=== PATIENT | female | born 1990 | race Two or more races ===

== ENCOUNTER 2024-10-05 11:01 | Emergency (ER) | payer MEDICAID, OTHER ==
[~2024-10-05] VITALS: Ht 172.7 cm; Wt 88.4 kg
[2024-10-05 11:12] VITALS: BP 125/81; PULSE 108; RESP 18; TEMP 98.1; O2SAT 98
--- NOTE | 2024-10-05 11:16 | ED.PDOC ---
GI ASSESSMENT HPI Comments 34 y.o female presents to the ED for a chief complaint of nausea, vomiting and abdominal pain that started last night. Patient is about 24 weeks gestation, states history of Hyperemesis gravidarum with preeclampsia and has . Patient reports clear fluid discharge on her underwear this morning with no bleeding or odor noted. Patient reports last emesis episode was half an hour ago and noted bright red blood. She denies any pelvic pain, fever, chills, back pain. No other complaints. She denies substance, alcohol or tobacco use. Time Seen by MD: 11:08 Reviewed Notes: Nurses Notes, Medications, Allergies Allergies: Coded Allergies: NO KNOWN ALLERGIES (Unverified , 10/05/24) Information Source: Patient Mode of Arrival: Ambulatory Timing: Hours Duration: Since onset Vomitus: Hard Stool: Normal Severity: Moderate Recent: None Recent Hx of: None Pain Location: Diffuse, Periumbilical Modifying Factors: Nothing Associated sign and symptoms: Nausea, Vomiting, Abdominal Pain Past Medical History PAST MEDICAL HISTORY: Denies Surgical History: Denies all surgeries PATIENT CARE TECHNICIAN History: Other (preeclampsia and HG ) Family History Family History: Reviewed,noncontributory to illness Social History Smoker: Non-Smoker Alcohol: Denies ETOH Use Drugs: Denies Drug Use Lives In: Home Constitutional: denies: chills, diaphoresis, fatigue, fever, malaise, sweats, weakness, others EENTM: denies: blurred vision, double vision, ear bleeding, ear discharge, ear drainage, ear pain, ear ringing, eye pain, eye redness, hearing loss, mouth pain, mouth swelling, nasal discharge, nose bleeding, nose congestion, nose pain, photophobia, tearing, throat pain, throat swelling, voice changes, others Respiratory: denies: cough, hemoptysis, orthopnea, SOB at rest, shortness of breath, SOB with excertion, stridor, wheezing, others Cardiovascular: denies: chest pain, dizzy spells, diaphoresis, Dyspnea on exertion, edema, irregular heart beat, left arm pain, lightheadedness, palpitations, PND, syncope, others Gastrointestinal: reports: nausea, vomiting; denies: abdomen distended, abdominal pain, blood streaked bowels, constipated, diarrhea, dysphagia, difficulty swallowing, hematemesis, melena, poor appetite, poor fluid intake, rectal bleeding, rectal pain, others Genitourinary: reports: , vagina discharge; denies: abnormal vagina bleeding, burning, dyspareunia, dysuria, flank pain, frequency, hematuria, incontinence, pain, urgency, others Neurological: denies: dizziness, fainting, headache, left sided numbness, left sided weakness, numbness, paresthesia, pre-existing deficit, right sided numbness, right sided weakness, seizure, speech problems, tingling, tremors, weakness, others Musculoskeletal: denies: back pain, gout, joint pain, joint swelling, muscle pain, muscle stiffness, neck pain, others Integumetry: denies: bruises, change in color, change in hair/nails, dryness, laceration, lesions, lumps, rash, wounds, others Allergic/Immunocompromised: denies: Difficulty Healing, Frequent Infections, Hives, Itching, others Endocrine: denies: excessive hunger, excessive sweating, excessive thirst, excessive urination, flushing, intolerance to cold, intolerance to heat, u nexplained weight gain, unexplained weight loss, others Psychiatric: denies: anxiety, bipolar disorder, depression, hopeless, panic disorder, schizophrenia, sleepless, suicidal, others All Other Systems: Reviewed and Negative Physical Exam General Appearance: No Apparent Distress HEENT: Normal ENT Inspection, Pharynx Normal, TMs Normal Neck: Full Range of Motion, Non-Tender, Normal, Normal Inspection Respiratory: Chest Non-Tender, Lungs Clear, No Accessory Muscle Use, No Respiratory Distress, Normal Breath Sounds Cardiovascular: No Edema, No JVD, No Murmur, No Gallop, Normal Peripheral Pulses, Regular Rate/Rhythm Breast Exam: Deferred Gastrointestinal: Non Tender, No Pulsatile Mass, Normal Bowel Sounds, Other (Gravid uterus) Genitalia: Deferred Pelvic: Deferred Rectal: Deferred Extremities: No calf tenderness, Normal capillary refill, Normal inspection, Normal range of motion, Non-tender, No pedal edema Musculoskeletal : Apperance: Normal Neurologic: Alert, credit and collections analyst II-XII nml as Tested, No Motor Deficits, Normal Affect, Normal Mood, No Sensory Deficits Cerebellar Function: Normal Reflexes: Normal Skin: Dry, Normal Color, Warm Lymphatic: No Adenopathy Was a procedure done? Was a procedure done?: No GI differential Dx Differential Diagnosis: Esophagitis, Gastroenteritis, Dehydration, Electrolyte Imbalance, Food Poisoning, , Viral X-Ray, Labs, Meds, VS Vital Signs Date Time Temp Pulse Resp B/P (MAP) Pulse Ox O2 Delivery O2 Flow Rate FiO2 10/05/24 11:12 98.1 108 18 125/81 (96) 98 98.1 The patient was cleared to go down to labor and delivery The patient was cleared from the emergency department's Time of 1ST Reevaluation: 11:11 Reevaluation 1ST: Unchanged Patient Education/Counseling: Diagnosis, Treatment, Prognosis, Need For Follow Up Family Education/Counseling: No Family Present Departure 1 Departure Time of Disposition: 11:57 Impression: Primary Impression: Abdominal pain in Qualified Codes: O26.899 - Other specified related conditions, unspecified trimester; R10.9 - Unspecified abdominal pain Disposition: 01 HOME / SELF CARE / HOMELESS Condition: Fair Discharged With: Self Critical Care Note Critical Care Time?: No Stability Stability form required: No I personally scribed for AURORA LARSON MD ([email or web address]) on 10/05/24 at 11:16. Electronically submitted by Erika Fontanez ([facility]). AURORA LARSON MD Oct 05, 2024 11:16
[2024-10-05] MEDS: ONDANSETRON ODT 4 MG TAB PO ONE (12:45)
[2024-10-05] MEDS: FAMOTIDINE 20 MG TAB PO ONE (12:50)
[2024-10-05] MEDS ORDERED: TERBUTALINE SULFATE 1 MG/ML 1ML VIAL SC ONE (13:30)
--- NOTE | 2024-10-05 13:49 | DVH ---
LIMITED OB ULTRASOUND > 14 WKS: HISTORY: possible SROM TECHNIQUE: Multiple real-time grayscale images of the gravid uterus with duplex Doppler color flow an d M-mode spectral analysis. TRANSDUCER: Transabdominal COMPARISON: None FINDINGS /IMPRESSION: IUP single live fetus identified. heart rate 138 beats per minute Maximum vertical pocket 6.4 cm Cervix closed, 3.4 cm in length Cephalic Presentation Anterior placenta without previa or abruption.
[2024-10-05 13:55] LABS: Fern Testing Negative; Vaginal Trichomonas Not Present
[2024-10-05 13:56] LABS: Vaginal Bacteria Moderate; Vaginal Clue Cells Few; Vaginal Epithelial Cells Few
--- NOTE | 2024-10-05 14:41 | DVHDS2 ---
Physician Discharge Progress N Final Diagnosis: IUP 24 wk, abd pain, gastritis N/V with mild dehydration, resolved Threatened PTL Secondary Diagnosis: Bacterial vaginosis Operations or Procedures: Operations or Procedures Ultrasound Pelvic exam w/ wet mount + for bacterial vaginosis Exam for PPROM negative for ruptured membranes SVE Cervix closed on exam and closed, 3.4cm long by US, MVP >6cm fluid Condition on Discharge: Stable Disposition: Home Discharge Instructions: Diet: Regular Activity: Light activity Follow Up/Referral: 1-2 wk primary OB Medications: Rx Flagyl 500mg PO BID x 7d Rx Pepcid 20mg Follow Up Care: Discharge Statement: "Patient was advised to return to the ER or call 911 if any headaches, dizziness, shortness of breath, chest pain, abdominal pain, bleeding, fevers, or worsening of medical condition. Patient was counseled about treatment plan, medications, possible side effects, patientverbalized understanding. All questions were answered to the best of my ability. This discharge took greater then 30 minutes in planning, reviewing documentation, counseling the patient, and discussing with other team members." Visit Coding OBGYN Date of Service: Oct 05, 2024 Billing Provider: JANI ARTHUR DO CAR WRECKER Common Visit Codes: [id number] INP/OBS CARE(HIGH) JANI ARTHUR DO Oct 05, 2024 14:41
[2024-10-05] MEDS ORDERED: MET500T PO (14:43)
[2024-10-05] MEDS ORDERED: PREN-96 PO (14:44)
[2024-10-05] MEDS ORDERED: FAMO20TA10 PO (14:44)
== END 2024-10-05 14:52 | disposition home or self-care (01) ==
LOC: ER 11:01 → LDRP 11:20
PROVIDERS: ADMIT Obstetrics & Gynecology; ATTEND Obstetrics & Gynecology
DX: O99.612 Diseases of the digestive system complicating pregnancy, second trimester (principal); K29.70 Gastritis, unspecified, without bleeding; O23.592 Infection of other part of genital tract in pregnancy, second trimester; B96.89 Other specified bacterial agents as the cause of diseases classified elsewhere; O99.112 Other diseases of the blood and blood-forming organs and certain disorders involving the immune mechanism complicating pregnancy, second trimester; D84.9 Immunodeficiency, unspecified; O99.282 Endocrine, nutritional and metabolic diseases complicating pregnancy, second trimester; E86.0 Dehydration; Z3A.24 24 weeks gestation of pregnancy; Z98.890 Other specified postprocedural states; Z79.899 Other long term (current) drug therapy
CPT/HCPCS: 76815; 81002; 84112; 87210; 94760; 99284; G0378; Q0114; Q0162

== ENCOUNTER 2024-10-29 18:17 | Observation (INO) | payer MEDICAID ==
[~2024-10-29] VITALS: Ht 172.7 cm; Wt 91.6 kg
[~2024-10-29 18:17] MED LIST: FAMO20TA10 PO; MET500T PO; PREN-96 PO
--- NOTE | 2024-10-29 23:16 | DVHDS2 ---
Physician Discharge Progress N Final Diagnosis: throat pain fatigue dehydration Operations or Procedures: Operations or Procedures S: 34yo IUP@28+wks presents to OB triage with c/o throat pain and feeling tired. Denies any other URI symptoms. Denies UCs/LOF/VB/COSTA/vision changes/RUQ pain. Endorses +FM. PNC with Dr. Youngblood, uncomplicated. O: VSS, afebrile NST reactive TOCO: no UCs PO hydration A: 34yo IUP@28+wks throat pain fatigue dehydration P: D/C home Advised to gargle with warm water and salt mixture. RN to give pt list of safe OTC medications for sore throats. Rx sent for z-иван FKC/PTL/PreE precautions reviewed Dr. Youngblood consulted, agrees with POC. Condition on Discharge: Stable Disposition: Home Discharge Instructions: Diet: Regular Activity: No Restrictions, As Tolerated Medications: see med list Follow Up Care: Specialist: f/u with Dr. Youngblood in office as scheduled Discharge Statement: "Patient was advised to return to the ER or call 911 if any headaches, dizziness, shortness of breath, chest pain, abdominal pain, bleeding, fevers, or worsening of medical condition. Patient was counseled about treatment plan, medications, possible side effects, patientverbalized understanding. All questions were answered to the best of my ability. This discharge took greater then 30 minutes in planning, reviewing documentation, counseling the patient, and discussing with other team members." Visit Coding OBGYN Date of Service: October 29, 2024 Billing Provider: KARON HERNANDES CNM AIRCRAFT TOOL MAKER Common Visit Codes: [id number] OBS CARE (HIGH) AIRCRAFT TOOL MAKER Procedure Codes: 02601-96- NON-STRESS TEST KARON HERNANDES CNM October 29, 2024 23:16
[2024-10-29] MEDS ORDERED: AZITTAB PO (23:18)
== END 2024-10-29 19:42 | disposition home or self-care (01) ==
LOC: LDRP 18:17
PROVIDERS: ADMIT Obstetrics & Gynecology; ATTEND Obstetrics & Gynecology
DX: O99.283 Endocrine, nutritional and metabolic diseases complicating pregnancy, third trimester (principal); E86.0 Dehydration; O26.893 Other specified pregnancy related conditions, third trimester; R07.0 Pain in throat; Z3A.28 28 weeks gestation of pregnancy; Z79.899 Other long term (current) drug therapy
CPT/HCPCS: 59025; 81002; 94760; G0378

== ENCOUNTER 2024-11-11 13:38 | Observation (INO) | payer MEDICAID ==
[~2024-11-11 13:38] MED LIST changes: +AZITTAB PO; -FAMO20TA10 PO; -MET500T PO
[2024-11-11 14:48] LABS: Basophils # (auto) 0 10 ^3/uL (0-0.2); Basophils % (auto) 0.2 % (0.0-2.0); Eosinophils # (auto) 0.1 10 ^3/uL (0-0.8); Eosinophils % (auto) 0.9 % (0.0-7.0); Hematocrit 32.9 % (36.0-46.0); Hemoglobin 10.8 g/dL (12.2-16.2); Lymphocytes # (auto) 2.5 10 ^3/uL (0.4-5.4); Lymphocytes % (auto) 17.4 % (10.0-50.0); Mean Corpuscular Hemoglobin 26.9 pg (28.0-32.0); Mean Corpuscular Hgb Conc. 32.9 g/dL (32.0-36.0); Mean Corpuscular Volume 81.9 fL (80.0-100.0); Monocytes # (auto) 1.3 10 ^3/uL (0-1.3); Monocytes % (auto) 8.8 % (0.0-12.0); Neutrophils # (auto) 10.5 10 ^3/uL (1.6-8.6); Neutrophils % (auto) 72.7 % (37.0-80.0); Nucleated Red Blood Cells % 0.1 %; Platelet Count (auto) 281 10^3/uL (140-450); Red Blood Cells 4.02 10^6/uL (4.0-5.20); Red Cell Distribution Width 14.2 % (11.8-14.3); White Blood Cell 14.4 10^3/uL (4.4-10.8)
[2024-11-11 14:54] LABS: Urine Bacteria FEW /hpf (None Seen); Urine Blood Negative /uL (Negative); Urine Clarity Turbid (Clear); Urine Color Yellow (Yellow); Urine Mucus FEW (None Seen); Urine Protein, UAD TRACE (Negative); Urine Specific Gravity 1.034 (1.001-1.035); Urine Squamous Epithelial Cell MANY /hpf (<5); Urine Urobilinogen Normal (Negative); Urine WBC 9 /HPF (0-5); Urine pH 5.5 (5.0-9.0)
[2024-11-11 15:04] LABS: INR 0.96 (0.9-1.15); Partial Thromboplastin Time 29.2 SEC (24.5-34.5); Prothrombin Time 10.2 sec (9.3-11.8)
[2024-11-11 15:05] LABS: Protein, Urine 16.5 mg/dL (1-14)
[2024-11-11 15:08] LABS: Creatinine, Urine 213.48 mg/dL (30.0-125.0); Urine Protein/Creatinine Ratio 0.08
[2024-11-11 15:10] LABS: Alanine Aminotransferase 23 U/L (7-40); Albumin 3.9 g/dL (3.2-4.8); Alkaline Phosphatase 108 U/L (46-116); Anion Gap 8 (5-15); Aspartate Aminotransferase 18 U/L (13-40); BUN/Creatinine Ratio 12.1 (10.0-20.0); Bilirubin, Total 0.3 mg/dL (0.2-1.0); Blood Urea Nitrogen 7 mg/dL (9-23); Carbon Dioxide 22 mmol/L (20-31); Chloride 107 mmol/L (98-107); Glucose 85 mg/dL (74-106); Potassium 3.9 mmol/L (3.5-5.1); Sodium 137 mmol/L (136-145); Total Protein 6.6 g/dL (5.7-8.2); Uric Acid 5.2 mg/dL (3.1-7.8)
--- NOTE | 2024-11-11 18:38 | DVHDS2 ---
Physician Discharge Progress N Final Diagnosis: testing for BP monitoring Operations or Procedures: Operations or Procedures 34yo IUP@29.6wks was sent down from [facility] [place] [facility] office for BP of 140/88. +fm, Denies UCs/LOF/VB/COSTA/vision changes/RUQ pain. PNC uncomplicated thus far. VSS, normotensive NST reactive FKC/PTL/preE precautions reviewed. Dr. Youngblood consulted, agrees with POC. Laboratory Tests Test 11/11/24 14:29 11/11/24 14:45 Range/Units White Blood Count 14.4 H 4.4-10.8 10^3/uL Red Blood Count 4.02 4.0-5.20 10^6/uL Hemoglobin 10.8 L 12.2-16.2 g/dL Hematocrit 32.9 L 36.0-46.0 % Mean Corpuscular Volume 81.9 80.0-100.0 fL Mean Corpuscular Hemoglobin 26.9 L 28.0-32.0 pg Mean Corpuscular Hemoglobin Concent 32.9 32.0-36.0 g/dL Red Cell Distribution Width 14.2 11.8-14.3 % Platelet Count 281 140-450 10^3/uL Mean Platelet Volume 8.4 6.9-10.8 fL Neutrophils (%) (Auto) 72.7 37.0-80.0 % Lymphocytes (%) (Auto) 17.4 10.0-50.0 % Monocytes (%) (Auto) 8.8 0.0-12.0 % Eosinophils (%) (Auto) 0.9 0.0-7.0 % Basophils (%) (Auto) 0.2 0.0-2.0 % Neutrophils # (Auto) 10.5 H 1.6-8.6 10 ^3/uL Lymphocytes # (Auto) 2.5 0.4-5.4 10 ^3/uL Monocytes # (Auto) 1.3 0-1.3 10 ^3/uL Eosinophils # (Auto) 0.1 0-0.8 10 ^3/uL Basophils # (Auto) 0 0-0.2 10 ^3/uL Nucleated Red Blood Cells 0.1 % Prothrombin Time 10.2 9.3-11.8 sec Prothrombin Time INR 0.96 0.9-1.15 Activated Partial Thromboplast Time 29.2 24.5-34.5 SEC Sodium Level 137 136-145 mmol/L Potassium Level 3.9 3.5-5.1 mmol/L Chloride Level 107 98-107 mmol/L Carbon Dioxide Level 22 20-31 mmol/L Anion Gap 8 5-15 Blood Urea Nitrogen 7 L 9-23 mg/dL Creatinine 0.58 0.550-1.02 mg/dL Glomerular Filtration Rate Calc 123 >90 mL/min BUN/Creatinine Ratio 12.1 10.0-20.0 Serum Glucose 85 74-106 mg/dL Uric Acid 5.2 3.1-7.8 mg/dL Calcium Level 9.0 8.7-10.4 mg/dL Total Bilirubin 0.3 0.2-1.0 mg/dL Aspartate Amino Transferase (AST) 18 13-40 U/L Alanine Aminotransferase (ALT) 23 7-40 U/L Alkaline Phosphatase 108 46-116 U/L Total Protein 6.6 5.7-8.2 g/dL Albumin 3.9 3.2-4.8 g/dL Urine Color Yellow Yellow Urine Clarity Turbid H Clear Urine pH 5.5 5.0-9.0 Urine Specific [place] 1.034 1.001-1.035 Urine Protein Trace H Negative Urine Ketones Trace Negative Urine Blood Negative Negative /uL Urine Nitrite Negative Negative Urine Bilirubin Negative Negative Urine Urobilinogen Normal Negative mg/dL Urine Leukocyte Esterase 2+ Negative /uL Urine RBC 5 0 - 4 /hpf Urine Microscopic WBC 9 H 0-5 /HPF Urine Squamous Epithelial Cells Many <5 /hpf Urine Bacteria Few H None Seen /hpf Urine Mucus Few None Seen Urine Creatinine 213.48 H 30.0-125.0 mg/dL Urine Protein/Creatinine Ratio 0.08 Urine Glucose Trace Normal mg/dL Urine Total Protein 16.5 H 1-14 mg/dL Condition on Discharge: Stable Disposition: Home Discharge Instructions: Diet: Regular Activity: No Restrictions, As Tolerated Medications: see med list Follow Up Care: Specialist: f/u on 11/13/24 with 24 hour urine collection Discharge Statement: "Patient was advised to return to the ER or call 911 if any headaches, dizziness, shortness of breath, chest pain, abdominal pain, bleeding, fevers, or worsening of medical condition. Patient was counseled about treatment plan, medications, possible side effects, patientverbalized understanding. All questions were answered to the best of my ability. This discharge took greater then 30 minutes in planning, reviewing documentation, counseling the patient, and discussing with other team members." Visit Coding OBGYN Date of Service: Nov 11, 2024 Billing Provider: KARON HERNANDES CNM DUPLEX TRIMMER Common Visit Codes: 06036-[id number] OBS CARE (HIGH) DUPLEX TRIMMER Procedure Codes: 97210-26- NON-STRESS TEST KARON HERNANDES CNM Nov 11, 2024 18:38
== END 2024-11-11 15:36 | disposition home or self-care (01) ==
LOC: LDRP 13:38
PROVIDERS: ADMIT Obstetrics & Gynecology; ATTEND Obstetrics & Gynecology
DX: O26.893 Other specified pregnancy related conditions, third trimester (principal); R03.0 Elevated blood-pressure reading, without diagnosis of hypertension; Z3A.29 29 weeks gestation of pregnancy; Z79.899 Other long term (current) drug therapy; Z98.890 Other specified postprocedural states; Z86.2 Personal history of diseases of the blood and blood-forming organs and certain disorders involving the immune mechanism
CPT/HCPCS: 36415; 59025; 80053; 81001; 81002; 82570; 82948; 84156; 84550; 85025; 85610; 85730; 94760; G0378

== ENCOUNTER 2024-11-13 07:17 | Observation (INO) | payer MEDICAID ==
[~2024-11-13] VITALS: Ht 172.7 cm; Wt 91.6 kg
[2024-11-13 08:46] LABS: Urine Bacteria FEW /hpf (None Seen); Urine Blood Negative /uL (Negative); Urine Clarity Turbid (Clear); Urine Color Light-Orange (Yellow); Urine Mucus FEW (None Seen); Urine Protein, UAD TRACE (Negative); Urine Specific Gravity 1.028 (1.001-1.035); Urine Squamous Epithelial Cell MANY /hpf (<5); Urine Urobilinogen Normal (Negative); Urine WBC 50 /HPF (0-5); Urine pH 5.5 (5.0-9.0)
[2024-11-13 08:56] LABS: Creatinine, Urine 181.1 mg/dL (30.0-125.0); Urine Protein/Creatinine Ratio 0.16
[2024-11-13 09:09] LABS: Protein, Urine 19.8 mg/dL (1-14)
--- NOTE | 2024-11-13 09:14 | DVH ---
BIOPHYSICAL PROFILE HISTORY: pih/gdma TECHNIQUE: Multiple transabdominal real-time grayscale sonographic images through the gravid uterus of the fetus with duplex Doppler color flow and M-mode spectral analysis FINDINGS: BIOPHYSICAL PROFILE: breathing score: 2 movement score: 2 tone score: 2 Quantitative SANDY score: 2 (SANDY: 11.9 Cm.) Total score: 8 The cervix measures 2.9 cm and closed. Single live fetus in cephalic presentation. heart rate 144 beats per minute. Grade 1 anterior placenta without previa or abruption IMPRESSION: Biophysical profile score: 8
[2024-11-13 09:25] LABS: 24 Hr. Total Protein, Urine 158.4 mg/24 Hr (<149.1)
[2024-11-13] MEDS: BETAMETHASONE ACET (30mg/5ml) 5ml Vial 6mg/ml IM ONE (11:26)
--- NOTE | 2024-11-15 08:43 | DVHDS2 ---
Physician Discharge Progress N Final Diagnosis: ptl,mhp10ern Operations or Procedures: Operations or Procedures nst reactive reviwed,monserrato Condition on Discharge: Good Disposition: Home Discharge Instructions: Diet: Consistent carbohydrate Activity: No Restrictions, As Tolerated Medications: na Follow Up Care: Specialist: 1d Discharge Statement: "Patient was advised to return to the ER or call 911 if any headaches, dizziness, shortness of breath, chest pain, abdominal pain, bleeding, fevers, or worsening of medical condition. Patient was counseled about treatment plan, medications, possible side effects, patientverbalized understanding. All questions were answered to the best of my ability. This discharge took greater then 30 minutes in planning, reviewing documentation, counseling the patient, and discussing with other team members." Visit Coding OBGYN Date of Service: Nov 13, 2024 Billing Provider: SANDRO AGUILAR DO STOCK CAR DRIVER Common Visit Codes: 69554-[id number] OBS CARE (HIGH) STOCK CAR DRIVER Procedure Codes: 48301-22- NON-STRESS TEST SANDRO AGUILAR DO Nov 15, 2024 08:43
== END 2024-11-13 11:55 | disposition home or self-care (01) ==
LOC: LDRP 07:17 → UNDOADMOB 07:17 → LDRP 07:45
PROVIDERS: ADMIT Obstetrics & Gynecology; ATTEND Obstetrics & Gynecology
DX: O60.03 Preterm labor without delivery, third trimester (principal); O13.3 Gestational [pregnancy-induced] hypertension without significant proteinuria, third trimester; Z3A.30 30 weeks gestation of pregnancy; Z79.899 Other long term (current) drug therapy; Z98.890 Other specified postprocedural states
CPT/HCPCS: 59025; 76819; 81001; 81002; 82570; 82948; 82962; 84156; 94760; 96360; 96361; 96372; G0378; J0702

== ENCOUNTER 2024-11-14 07:23 | Observation (INO) | payer MEDICAID ==
[~2024-11-14] VITALS: Ht 172.7 cm; Wt 91.6 kg
[2024-11-14] MEDS: BETAMETHASONE ACET (30mg/5ml) 5ml Vial 6mg/ml IM ONE (12:04)
--- NOTE | 2024-11-14 18:51 | DVHDS2 ---
Physician Discharge Progress N Final Diagnosis: 32wks pih,ptl Operations or Procedures: Operations or Procedures nstreactive reviwed Condition on Discharge: Good Disposition: Home Discharge Instructions: Diet: Consistent carbohydrate Activity: Light activity Medications: na Follow Up Care: Specialist: 4d Discharge Statement: "Patient was advised to return to the ER or call 911 if any headaches, dizziness, shortness of breath, chest pain, abdominal pain, bleeding, fevers, or worsening of medical condition. Patient was counseled about treatment plan, medications, possible side effects, patientverbalized understanding. All questions were answered to the best of my ability. This discharge took greater then 30 minutes in planning, reviewing documentati on, counseling the patient, and discussing with other team members." Discharge Care Plan Instructions S/S of dehydration Visit Coding OBGYN Date of Service: Nov 14, 2024 Billing Provider: SANDRO AGUILAR DO CARDIOLOGY TECH Common Visit Codes: [id number] INP/OBS CARE (HIGH) CARDIOLOGY TECH Procedure Codes: 66075-32- NON-STRESS TEST SANDRO AGUILAR DO Nov 14, 2024 18:51
== END 2024-11-14 12:19 | disposition home or self-care (01) ==
LOC: UNDOADMOB 10:14 → LDRP 10:14
PROVIDERS: ADMIT Obstetrics & Gynecology; ATTEND Obstetrics & Gynecology
DX: O60.03 Preterm labor without delivery, third trimester (principal); O13.3 Gestational [pregnancy-induced] hypertension without significant proteinuria, third trimester; Z3A.32 32 weeks gestation of pregnancy; Z79.899 Other long term (current) drug therapy; Z98.890 Other specified postprocedural states
CPT/HCPCS: 59025; 81002; 82962; 94760; 96372; G0378

== ENCOUNTER 2024-11-17 03:46 | Observation (INO) | payer MEDICAID ==
[2024-11-17] MEDS ORDERED: LABE100T7 PO (12:59)
[2024-11-17] MEDS ORDERED: NIFE10CA52 PO (12:59)
--- NOTE | 2024-11-17 23:25 | DVHDS2 ---
Discharge Summary Date of Admission Nov 17, 2024 at 12:35 Date of Discharge: Nov 17, 2024 Admitting Diagnosis Thirty weeks 5 days GDM A1 labor PI H Labs/Diagnostic Data: Laboratory Results Test 11/17/24 13:05 POC Glucose 104 mg/dl (70-106) Brief Hx & Hospital Course: NST ultrasound showing Condition at Discharge: Good Final Diagnosis/Problems List Same Discharge Disposition: Home Discharge Instruct/Medications Diet: Consistent carbohydrate Activity: No Restrictions, As Tolerated Activity comment: Kick counseling precautions Discharge Statement: "Patient was advised to return to the ER or call 911 if any headaches, dizziness, shortness of breath, chest pain, abdominal pain, bleeding, fevers, or worsening of medical condition. Patient was counseled about treatment plan, medications, possible side effects, patientverbalized understanding. All questions were answered to the best of my ability. This discharge took greater then 30 minutes in planning, reviewing documentation, counseling the patient, and discussing with other team members." ASSESSMENT ASSESSMENT Assessment Visit Coding OBGYN Date of Service: Nov 17, 2024 Billing Provider: NADEEM WANG DO LIME BOILER Common Visit Codes: 14272-VPK/OBS SAME DATE (LOW), 20949-VPD/OBS SAME DATE (MOD), 35849-FQN/OBS SAME DATE (HIGH) LIME BOILER Procedure Codes: 60286-84- NON-STRESS TEST NADEEM WANG DO Nov 17, 2024 23:25
== END 2024-11-17 13:51 | disposition home or self-care (01) ==
LOC: LDRP 12:18 → UNDOADMOB 12:18 → LDRP 12:35
PROVIDERS: ADMIT Obstetrics & Gynecology; ATTEND Obstetrics & Gynecology
DX: O60.03 Preterm labor without delivery, third trimester (principal); O13.3 Gestational [pregnancy-induced] hypertension without significant proteinuria, third trimester; O24.419 Gestational diabetes mellitus in pregnancy, unspecified control; Z3A.30 30 weeks gestation of pregnancy; Z79.899 Other long term (current) drug therapy
CPT/HCPCS: 59025; 81002; 82948; 82962; 94760; G0378

== ENCOUNTER 2024-11-20 06:54 | Observation (INO) | payer MEDICAID ==
[~2024-11-20 06:54] MED LIST changes: +LABE100T7 PO; +NIFE10CA52 PO
--- NOTE | 2024-11-21 09:55 | DVHDS2 ---
Physician Discharge Progress N Final Diagnosis: 31wks,gdm,ptl,pih Operations or Procedures: Operations or Procedures nst reactive reviwed,sono Condition on Discharge: Good Disposition: Home Discharge Instructions: Diet: Consistent carbohydrate Activity: No Restrictions, As Tolerated Follow Up/Referral: as scheduled. Medications: na Follow Up Care: Specialist: 3d Discharge Statement: "Patient was advised to return to the ER or call 911 if any headaches, dizziness, shortness of breath, chest pain, abdominal pain, bleeding, fevers, or worsening of medical condition. Patient was counseled about treatment plan, medications, possible side effects, patientverbalized understanding. All questions were answered to the best of my ability. This discharge took greater then 30 minutes in planning, reviewing documentation, counseling the patient, and discussing with other team members." Visit Coding OBGYN Date of Service: Nov 20, 2024 Billing Provider: SANDRO AGUILAR DO STEAMBOAT INSPECTOR Common Visit Codes: [id number]-[id number] OBS CARE (HIGH) STEAMBOAT INSPECTOR Procedure Codes: 93567-69- NON-STRESS TEST SANDRO AGUILAR DO Nov 21, 2024 09:55
== END 2024-11-20 14:18 | disposition home or self-care (01) ==
LOC: LDRP 12:50 → UNDOADMOB 12:50 → LDRP 13:14
PROVIDERS: ADMIT Obstetrics & Gynecology; ATTEND Obstetrics & Gynecology
DX: O24.419 Gestational diabetes mellitus in pregnancy, unspecified control (principal); O60.03 Preterm labor without delivery, third trimester; O13.3 Gestational [pregnancy-induced] hypertension without significant proteinuria, third trimester; Z3A.31 31 weeks gestation of pregnancy; Z79.899 Other long term (current) drug therapy; Z98.890 Other specified postprocedural states
CPT/HCPCS: 59025; 81002; 82948; 82962; 94760; G0378

== ENCOUNTER 2024-11-24 07:17 | Observation (INO) | payer MEDICAID ==
[~2024-11-24] VITALS: Ht 172.7 cm; Wt 91.2 kg
[2024-11-24 10:39] LABS: Eosinophils # (auto) 0.1 10 ^3/uL (0-0.8); Eosinophils % (auto) 0.9 % (0.0-7.0); Hemoglobin 10.3 g/dL (12.2-16.2)
[2024-11-24 10:41] LABS: Basophils # (auto) 0 10 ^3/uL (0-0.2); Basophils % (auto) 0.2 % (0.0-2.0); Hematocrit 31.4 % (36.0-46.0); Lymphocytes # (auto) 2.3 10 ^3/uL (0.4-5.4); Lymphocytes % (auto) 16.7 % (10.0-50.0); Mean Corpuscular Hemoglobin 26.3 pg (28.0-32.0); Mean Corpuscular Hgb Conc. 32.7 g/dL (32.0-36.0); Mean Corpuscular Volume 80.3 fL (80.0-100.0); Monocytes # (auto) 0.9 10 ^3/uL (0-1.3); Monocytes % (auto) 6.8 % (0.0-12.0); Neutrophils # (auto) 10.3 10 ^3/uL (1.6-8.6); Neutrophils % (auto) 75.4 % (37.0-80.0); Platelet Count (auto) 267 10^3/uL (140-450); Red Blood Cells 3.91 10^6/uL (4.0-5.20); Red Cell Distribution Width 14.6 % (11.8-14.3); White Blood Cell 13.6 10^3/uL (4.4-10.8)
[2024-11-24 10:50] LABS: Urine Bacteria FEW /hpf (None Seen); Urine Blood Negative /uL (Negative); Urine Budding Yeast OCCASIONAL /hpf (None Seen); Urine Clarity Turbid (Clear); Urine Color Light-Yellow (Yellow); Urine Mucus FEW (None Seen); Urine Protein, UAD Negative (Negative); Urine Specific Gravity 1.017 (1.001-1.035); Urine Squamous Epithelial Cell FEW /hpf (<5); Urine Urobilinogen Normal (Negative); Urine WBC 1 /HPF (0-5); Urine pH 5.5 (5.0-9.0)
[2024-11-24 10:52] LABS: Protein, Urine 9.1 mg/dL (1-14)
[2024-11-24 10:53] LABS: INR 0.94 (0.9-1.15); Partial Thromboplastin Time 30.5 SEC (24.5-34.5)
[2024-11-24 10:54] LABS: Alanine Aminotransferase 16 U/L (7-40); Albumin 3.8 g/dL (3.2-4.8); Anion Gap 10 (5-15); Aspartate Aminotransferase 13 U/L (<34); BUN/Creatinine Ratio 9.7 (10.0-20.0); Calcium 9.8 mg/dL (8.7-10.4); Carbon Dioxide 23 mmol/L (20-31); Chloride 105 mmol/L (98-107); Potassium 4.1 mmol/L (3.5-5.1); Sodium 138 mmol/L (136-145); Total Protein 6.4 g/dL (5.7-8.2)
[2024-11-24 10:54] LABS: Creatinine, Urine 101.37 mg/dL (30.0-125.0); Urine Protein/Creatinine Ratio 0.09
[2024-11-24 10:56] LABS: Amphetamine Screen, Urine Neg (NEGATIVE)
[2024-11-24 10:56] LABS: Alkaline Phosphatase 116 U/L (46-116); Bilirubin, Total 0.3 mg/dL (0.2-1.0); Blood Urea Nitrogen 6 mg/dL (9-23); Glucose 114 mg/dL (74-106)
[2024-11-24 10:57] LABS: Barbiturate Scree,Urine Neg (NEGATIVE); Benzodiazephine Screen, Urine Neg (NEGATIVE); Cannabinoid Screen, Urine Neg (NEGATIVE); Cocaine Screen, Urine Neg (NEGATIVE); Opiate Scree,Urine Neg (NEGATIVE); Phencyclidine Screen, Urine Neg (NEGATIVE)
--- NOTE | 2024-11-24 11:15 | DVH ---
BIOPHYSICAL PROFILE HISTORY: GDMA1, PIH, PTL TECHNIQUE: Multiple transabdominal real-time grayscale sonographic images through the gravid uterus of the fetus with duplex Doppler color flow and M-mode spectral analysis FINDINGS: BIOPHYSICAL PROFILE: breathing score: 2 movement score: 2 tone score: 2 Quantitative SANDY score: 2 (SANDY: 16 Cm.) Total score: 8 Cervix measures 2.6 cm with funneling measuring 8 mm. Single live fetus in cephalic presentation. heart rate 153 beats per minute. Grade II anterior placenta without previa or abruption IMPRESSION: Biophysical profile score: 8 Cervix measures 2.6 cm with funneling measuring 8 mm.
[2024-11-24 11:20] LABS: Uric Acid 5.3 mg/dL (3.1-7.8)
[2024-11-24] MEDS ORDERED: LACTATED RINGER'S 1,000 ML IV ONE ×2 (11:30)
[2024-11-24] MEDS ORDERED: FAMO-12 PO (11:49)
[2024-11-24] MEDS ORDERED: ASPI-543 PO (11:49)
--- NOTE | 2024-11-24 23:03 | DVHDS2 ---
Discharge Summary Date of Admission Nov 24, 2024 at 09:42 Date of Discharge: Nov 24, 2024 Admitting Diagnosis Thirty-one week five seven labor PIH GDM A1 Labs/Diagnostic Data: Laboratory Results Test 11/24/24 10:16 11/24/24 09:40 White Blood Count 13.6 10^3/uL (4.4-10.8) Red Blood Count 3.91 10^6/uL (4.0-5.20) Hemoglobin 10.3 g/dL (12.2-16.2) Hematocrit 31.4 % (36.0-46.0) Mean Corpuscular Volume 80.3 fL (80.0-100.0) Mean Corpuscular Hemoglobin 26.3 pg (28.0-32.0) Mean Corpuscular Hemoglobin Concent 32.7 g/dL (32.0-36.0) Red Cell Distribution Width 14.6 % (11.8-14.3) Platelet Count 267 10^3/uL (140-450) Mean Platelet Volume 8.3 fL (6.9-10.8) Neutrophils (%) (Auto) 75.4 % (37.0-80.0) Lymphocytes (%) (Auto) 16.7 % (10.0-50.0) Monocytes (%) (Auto) 6.8 % (0.0-12.0) Eosinophils (%) (Auto) 0.9 % (0.0-7.0) Basophils (%) (Auto) 0.2 % (0.0-2.0) Neutrophils # (Auto) 10.3 10 ^3/uL (1.6-8.6) Lymphocytes # (Auto) 2.3 10 ^3/uL (0.4-5.4) Monocytes # (Auto) 0.9 10 ^3/uL (0-1.3) Eosinophils # (Auto) 0.1 10 ^3/uL (0-0.8) Basophils # (Auto) 0 10 ^3/uL (0-0.2) Nucleated Red Blood Cells 0.0 % Prothrombin Time 10.0 sec (9.3-11.8) Prothrombin Time INR 0.94 (0.9-1.15) Activated Partial Thromboplast Time 30.5 SEC (24.5-34.5) Sodium Level 138 mmol/L (136-145) Potassium Level 4.1 mmol/L (3.5-5.1) Chloride Level 105 mmol/L (98-107) Carbon Dioxide Level 23 mmol/L (20-31) Anion Gap 10 (5-15) Blood Urea Nitrogen 6 mg/dL (9-23) Creatinine 0.62 mg/dL (0.550-1.02) Glomerular Filtration Rate Calc 121 mL/min (>90) BUN/Creatinine Ratio 9.7 (10.0-20.0) Serum Glucose 114 mg/dL (74-106) Uric Acid 5.3 mg/dL (3.1-7.8) Calcium Level 9.8 mg/dL (8.7-10.4) Total Bilirubin 0.3 mg/dL (0.2-1.0) Aspartate Amino Transferase (AST) 13 U/L (<34) Alanine Aminotransferase (ALT) 16 U/L (7-40) Alkaline Phosphatase 116 U/L (46-116) Total Protein 6.4 g/dL (5.7-8.2) Albumin 3.8 g/dL (3.2-4.8) Urine Color Light-yellow (Yellow) Urine Clarity Turbid (Clear) Urine pH 5.5 (5.0-9.0) Urine Specific [place] 1.017 (1.001-1.035) Urine Protein Negative (Negative) Urine Ketones Negative (Negative) Urine Blood Negative /uL (Negative) Urine Nitrite Negative (Negative) Urine Bilirubin Negative (Negative) Urine Urobilinogen Normal mg/dL (Negative) Urine Leukocyte Esterase 2+ /uL (Negative) Urine RBC 1 /hpf (0 - 4) Urine Microscopic WBC 1 /HPF (0-5) Urine Squamous Epithelial Cells Few /hpf (<5) Urine Bacteria Few /hpf (None Seen) Urine Mucus Few (None Seen) Urine Yeast (Budding) Occasional /hpf (None Urine Creatinine 101.37 mg/dL (30.0-125.0) Urine Protein/Creatinine Ratio 0.09 Urine Glucose Normal mg/dL (Normal) Urine Total Protein 9.1 mg/dL (1-14) Urine Opiates Screen Neg (NEGATIVE) Urine Fentanyl Screen Neg (NEGATIVE) Urine Barbiturates Screen Neg (NEGATIVE) Urine Phencyclidine Screen Neg (NEGATIVE) Urine Amphetamines Screen Neg (NEGATIVE) Urine Benzodiazepines Screen Neg (NEGATIVE) Urine Cocaine Screen Neg (NEGATIVE) Urine Cannabinoids Screen Neg (NEGATIVE) Other Laboratory Tests 11/24/24 10:16 Brief Hx & Hospital Course: GEN a one labor -induced hypertension Condition at Discharge: Good Final Diagnosis/Problems List GDM A1 labor PIH Discharge Disposition: Home Discharge Instruct/Medications Diet: Consistent carbohydrate Activity: Light activity Activity comment: Pelvic Rest kick counts labor precautions Follow Up/Referral: As scheduled Discharge Statement: "Patient was advised to return to the ER or call 911 if any headaches, dizziness, shortness of breath, chest pain, abdominal pain, bleeding, fevers, or worsening of medical condition. Patient was counseled about treatment plan, medications, possible side effects, patientverbalized understanding. All questions were answered to the best of my ability. This discharge took greater then 30 minutes in planning, reviewing documentation, counseling the patient, and discussing with other team members." ASSESSMENT ASSESSMENT Assessment Visit Coding OBGYN Date of Service: Nov 24, 2024 Billing Provider: NADEEM WANG DO SHIP OFFICER Common Visit Codes: [id number] INP/OBS CARE(MOD), 33525-[id number] INP/OBS CARE(HIGH), 34056-AYO/OBS SAME DATE (LOW) SHIP OFFICER Procedure Codes: 16818-20- NON-STRESS TEST NADEEM WANG DO Nov 24, 2024 23:03
== END 2024-11-24 12:14 | disposition home or self-care (01) ==
LOC: UNDOADMOB 09:37 → LDRP 09:37
PROVIDERS: ADMIT Obstetrics & Gynecology; ATTEND Obstetrics & Gynecology
DX: O24.419 Gestational diabetes mellitus in pregnancy, unspecified control (principal); O13.3 Gestational [pregnancy-induced] hypertension without significant proteinuria, third trimester; O60.03 Preterm labor without delivery, third trimester; Z3A.31 31 weeks gestation of pregnancy; Z98.890 Other specified postprocedural states; Z79.899 Other long term (current) drug therapy
CPT/HCPCS: 36415; 59025; 76819; 80053; 80307; 81001; 81002; 82570; 84156; 84550; 85025; 85610; 85730; 94760; 96360; 96361; G0378; J7120

== ENCOUNTER 2024-11-26 21:53 | Observation (INO) | payer MEDICAID ==
[~2024-11-26] VITALS: Ht 172.7 cm; Wt 91.2 kg
[~2024-11-26 21:53] MED LIST changes: +ASPI-543 PO; +FAMO-12 PO
[2024-11-26] MEDS ORDERED: ACETAMINOPHEN 325 MG TAB PO ONE ×2 (22:30→22:45)
[2024-11-26] MEDS: ONDANSETRON HCL 4 MG/2 ML VIAL IV ONE (22:59)
[2024-11-26] MEDS: LACTATED RINGER'S 1,000 ML IV ONE (23:00)
[2024-11-26] MEDS: TERBUTALINE SULFATE 1 MG/ML 1ML VIAL SC SCH (23:09)
[2024-11-26] MEDS: NIFEdipine 10 MG CAP PO ONE (23:15)
[2024-11-26] MEDS: cefTRIAXone 1GM/50ML D5W 50 ML IV ONE (23:49)
--- NOTE | 2024-11-26 23:53 | DVHDS2 ---
Physician Discharge Progress N Final Diagnosis: UTI PTL Secondary Diagnosis: GDM, A1 CHTN Operations or Procedures: Operations or Procedures S: 34yo , IUP 32.0 wks presents to OB Triage for nausea, vomiting, headache and UCs. Pt reports she experiences N/V daily since she entered her 3rd triester, yet today she not been able to keep in food or liquids. She states she experiences spotty vision while throwing up and RUQ pain described as "sharp". She states her COSTA comes and goes, she took Tylenol 650mg at 1800 today at home, does not currently have headache in OB triage. The UCs have been ongoing for weeks and was prescribed Procardia 10mg PO Q4hrs, 2 weeks ago. She reports vaginal pressure and lower abdominal cramping, rating her pain 2/10. She also reports frequency and dysuria with voids. She denies VB/LOF. Endorses + FM. Later in OB triage pt had bloody emesis. PNC at [facility] with Dr Youngblood. complicated by GDMA1, CHTN, and PTL. She takes baby aspirin and labetalol 100mg PO BID. Next appt with dr. youngblood is on 12/09/24. OBhx: 1. 30 wks, eclampsia 2. 38 wks, pre-eclampsia O: VSS NST: reactive [place]: regular UCs initially then UCs q3-6 min after 3 doses of terb and IV bolus Magnesium sulfate IV 4g bolus then 2g maintenance started SVE: 0/0/-3, recheck cervix 0/0/-3 IV fluid bolus 1 L IV Zofran 4mg Terbutaline x3 IV Rocephin 1g IV pepcid 40mg BPP 8/8 CVL 2.84cm SANDY 13.9cm Abdominal sono done, ruled out gallstones Dr. Youngblood consulted A: 34yo , IUP 32.0 wks labor UTI GDM, A1 cHTN P: Plan is to observe pt overnight and Dr. Youngblood will reevaluate in the morning. Condition on Discharge: Stable Disposition: Home Discharge Instructions: Diet: Consistent carbohydrate Activity: pelvic rest Medications: see RX list Follow Up Care: Specialist: NST/BPP twice weekly in [facility] Discharge Statement: "Patient was advised to return to the ER or call 911 if any headaches, dizziness, shortness of breath, chest pain, abdominal pain, bleeding, fevers, or worsening of medical condition. Patient was counseled about treatment plan, medications, possible side effects, patientverbalized understanding. All questions were answered to the best of my ability. This discharge took greater then 30 minutes in planning, reviewing documentation , counseling the patient, and discussing with other team members." Visit Coding OBGYN Date of Service: Nov 27, 2024 Billing Provider: KARON HERNANDES CNM INDUSTRIAL SERVICER Common Visit Codes: 41086-[id number] OBS CARE (HIGH) INDUSTRIAL SERVICER Procedure Codes: 20383-89- NON-STRESS TEST TOM STEPHENS STUDENTMDW Nov 26, 2024 23:53
[2024-11-27] MEDS ORDERED: FAMOTIDINE INJECTION 40 MG in SODIUM CHL 0.9% 100 ML IV STA (00:21)
[2024-11-27] MEDS: FAMOTIDINE (10MG/ML) 2ML VL IV ONE (01:00)
[2024-11-27] MEDS ORDERED: ZOFR4T PO (01:02)
--- NOTE | 2024-11-27 01:36 | DVH ---
INDICATION: rule out gallstones, vomitting blood, has RUQ abdominal pain TECHNIQUE: Multiple real-time sonographic images were obtained of the right upper quadrant. COMPARISON: None FINDINGS: The liver demonstrates normal homogeneous echotexture without focal mass lesions. The liver measures 16.0 cm. There is no intrahepatic or extrahepatic ductal dilatation. The common duct measures 0.4 cm. The gallbladder is without evidence of stone or sludge. The gallbladder wall measures 0.2 cm and is w ithin normal limits. The right kidney measures 10.4 cm. The right kidney is normal in contour, size, and shape. The echoge nicity is normal. There is no hydronephrosis. 1.5 cm anechoic right renal cyst. The left kidney measures 12.3 cm. The left kidney is normal in contour, size, and shape. The echogeni city is normal. There is no hydronephrosis. The pancreas is not well visualized due to overlying bowel gas. The spleen measures 9.5 cm. Inferior vena cava unremarkable. Proximal aorta measures 1.7 cm. IMPRESSION: 1. Unremarkable right upper quadrant sonogram. Right renal cyst.
[2024-11-27] MEDS: MAGNESIUM SULFATE 100 ML IV ONE (01:48)
[2024-11-27] MEDS: MAGNESIUM SULFATE 40MG/ML 1,000 ML IV SCH (02:14)
[2024-11-27 02:19] LABS: Alanine Aminotransferase 23 U/L (7-40); Albumin 3.7 g/dL (3.2-4.8); Anion Gap 12 (5-15); Aspartate Aminotransferase 24 U/L (<34); BUN/Creatinine Ratio 10.3 (10.0-20.0); Carbon Dioxide 22 mmol/L (20-31); Chloride 105 mmol/L (98-107); Sodium 139 mmol/L (136-145); Total Protein 6.3 g/dL (5.7-8.2)
[2024-11-27 02:20] LABS: Alkaline Phosphatase 124 U/L (46-116); Bilirubin, Total 0.3 mg/dL (0.2-1.0); Blood Urea Nitrogen 6 mg/dL (9-23); Calcium 8.4 mg/dL (8.7-10.4); Glucose 113 mg/dL (74-106); Potassium 3.1 mmol/L (3.5-5.1)
[2024-11-27] MEDS: ONDANSETRON HCL 4 MG/2 ML VIAL IV PRN (03:10)
[2024-11-27] MEDS: POTASSIUM CHL 20 Meq TABLET PO ONE (03:17)
[2024-11-27] MEDS: LACTATED RINGER'S 1,000 ML IV SCH (04:54)
--- NOTE | 2024-11-27 05:05 | DVH ---
BIOPHYSICAL PROFILE HISTORY: GDMA1 Comparison Study: US BIOPHYSICAL PROFILE on DOS: 11/24/24, US BIOPHYSICAL PROFILE on DOS: 11/13/24 TECHNIQUE: Multiple real-time grayscale sonographic images through the gravid uterus of the fetus wi th duplex Doppler color flow and M-mode spectral analysis FINDINGS: BIOPHYSICAL PROFILE: breathing score: 2 movement score: 2 tone score: 2 Quantitative SANDY score: 2 (SANDY: 13.9 Cm.) Total score: 8 The cervix measures 2.84 cm Single live fetus in cephalic presentation. heart rate 153 beats per minute. Anterior placenta without previa or abruption IMPRESSION: Biophysical profile score: 8/8 Cervix measures 2.8 cm.
[2024-11-27] MEDS: ACETAMINOPHEN IV 1000 MG/100ML (10MG/ML) IV ONE (07:29)
--- NOTE | 2024-11-27 08:54 | DVHHP ---
ADMIT DATE: 11/26/2024 CHIEF COMPLAINT: Uterine contractions. HISTORY OF PRESENT ILLNESS: The patient is a 34-year-old, 3, para 2, with EDC 01/21, estimated gestational age of 32 weeks, admitted for labor. The patient has a history of labor with one prior delivery. The patient was on Procardia and labetalol. She has chronic hypertension. The patient received Celestone on 11/12 and 11/13. On Sunday, the patient's estimated weight was 4 pounds 10 ounces, vertex presentation. Cervical length on 11/26 was 2.8. Cervix was closed. Repeat exam shows cervix to be soft. Continues with being closed. The patient was started on magnesium sulfate last night at midnight; however, this morning she broke through magnesium sulfate and continues with feeling some contractions. PAST MEDICAL HISTORY: Chronic hypertension. PAST SURGICAL HISTORY: None. SOCIAL HISTORY: None. FAMILY HISTORY: None. OBSTETRIC AND GYNECOLOGIC HISTORY: Two normal vaginal deliveries. REVIEW OF SYSTEMS: Consistent with HPI. ALLERGIES: No known drug allergies. PHYSICAL EXAMINATION: VITAL SIGNS: Stable, afebrile. HEENT: Within normal limits. CARDIOVASCULAR: Regular rate and rhythm. LUNGS: Clear to auscultation. BREASTS: Symmetrical. No masses. ABDOMEN: Gravid. Positive heart. Estimated weight 4 pounds 10 ounces. PELVIC: Cervix closed, soft, contractions 2 in 10 minutes. EXTREMITIES: No clubbing, cyanosis, or edema. IMPRESSION: * Intrauterine at 32+ weeks, labor. * Chronic hypertension. * History of labor in past . PLAN: The patient is stable for transfer to [facility]. Spoke to Dr. Garcia, who accepted the patient to [facility]. The patient will be airlifted. The patient is stable for transfer. DO TARUN Adair/SAMUEL/YANNICK TID: [id number] RECEIPT: [id number]
--- NOTE | 2024-11-27 08:56 | DVHTS ---
Transfer Summary Transfer Summary Date of Admission Nov 26, 2024 at 21:53 Date of Transfer: Nov 27, 2024 Transfer Diagnosis gdm,ptl,chtn Brief Hx & Hospital Course: pt is admitted for ptl,previously on procardia but broke through that and was started on mg pt was given celestonex2 ,cx was 2.8,vx and efw 4-10 Transfer to: [facility] Discharge Instructions: via air Transfer Status stable Visit Coding OBGYN Date of Service: Nov 27, 2024 Billing Provider: SANDRO AGUILAR DO PRINTED CIRCUIT PHOTOGRAPHER Common Visit Codes: [id number] OBS CARE (HIGH), 59399-[id number] INP/OBS CARE (HIGH) PRINTED CIRCUIT PHOTOGRAPHER Procedure Codes: 78270-00- NON-STRESS TEST SANDRO AGUILAR DO Nov 27, 2024 08:56
--- NOTE | 2024-11-27 08:59 | DVHDS2 ---
Physician Discharge Progress N Final Diagnosis: UTI PTL Secondary Diagnosis: GDM, A1 CHTN Operations or Procedures: Operations or Procedures nst raective reviwed,sono Condition on Discharge: Higher Level of Care Disposition: Acute Care Facility Discharge Instructions: Diet: Consistent carbohydrate Activity: pelvic rest Medications: see RX list Follow Up Care: Specialist: to [facility] dr roblero will manage ,dr wilcox arranged for transfer Discharge Statement: "Patient was advised to return to the ER or call 911 if any headaches, dizziness, shortness of breath, chest pain, abdominal pain, bleeding, fevers, or worsening of medical condition. Patient was counseled about treatment plan, medications, possible side effects, patientverbalized understanding. All questions were answered to the best of my ability. This discharge took greater then 30 minutes in planning, reviewing documentation, counseling the patient, and discussing with other team members." Visit Coding OBGYN Date of Service: Nov 27, 2024 Billing Provider: SANDRO AGUILAR DO VICE PRESIDENT OF MANUFACTURING Common Visit Codes: [id number] OBS CARE (HIGH) VICE PRESIDENT OF MANUFACTURING Procedure Codes: 46951-01- NON-STRESS TEST SANDRO AGUILAR DO Nov 27, 2024 08:59
== END 2024-11-27 08:38 | disposition short-term general hospital (02) ==
LOC: LDRP 21:53
PROVIDERS: ADMIT Obstetrics & Gynecology; ATTEND Obstetrics & Gynecology
DX: O13.3 Gestational [pregnancy-induced] hypertension without significant proteinuria, third trimester (principal); O21.2 Late vomiting of pregnancy; O24.419 Gestational diabetes mellitus in pregnancy, unspecified control; O60.03 Preterm labor without delivery, third trimester; O11.3 Pre-existing hypertension with pre-eclampsia, third trimester; O23.43 Unspecified infection of urinary tract in pregnancy, third trimester; N39.0 Urinary tract infection, site not specified; O26.893 Other specified pregnancy related conditions, third trimester; R10.30 Lower abdominal pain, unspecified; N89.8 Other specified noninflammatory disorders of vagina; Z79.899 Other long term (current) drug therapy; Z3A.32 32 weeks gestation of pregnancy
CPT/HCPCS: 36415; 59025; 76700; 76819; 80053; 82948; 82962; 83735; 94762; 96361; 96365; 96366; 96367; 96372; 96375; 96376; A4315; G0378; J0696; J2405; J3105; J3475; J3490; J7030; J7120; 96360; 96374; J0131

== ENCOUNTER 2024-12-01 08:08 | Observation (INO) | payer MEDICAID ==
[~2024-12-01 08:08] MED LIST changes: +ZOFR4T PO
[2024-12-01] MEDS ORDERED: NIFE10CA52 PO (08:29)
--- NOTE | 2024-12-01 09:02 | DVH ---
BIOPHYSICAL PROFILE HISTORY: GDMA1/PIH TECHNIQUE: Multiple transabdominal real-time grayscale sonographic images through the gravid uterus of the fetus with duplex Doppler color flow and M-mode spectral analysis FINDINGS: BIOPHYSICAL PROFILE: breathing score: 2 movement score: 2 tone score: 2 Quantitative SANDY score: 2 (SANDY: 14.5 Cm.) Total score: 8 The cervix not well visualized. Single live fetus in cephalic presentation. heart rate 141 beats per minute. Anterior placenta without previa or abruption IMPRESSION: Biophysical profile score: 8
--- NOTE | 2024-12-02 06:30 | DVHDS2 ---
Discharge Summary Date of Admission Dec 01, 2024 at 08:15 Date of Discharge: Dec 01, 2024 Admitting Diagnosis GDM A1 -induced hypertension history of labor at 32+ weeks Wounds: None Labs/Diagnostic Data: Laboratory Results Test 12/01/24 08:59 POC Glucose 136 mg/dl (70-106) Brief Hx & Hospital Course: Patient here for GDM A2 PH labor 32 weeks NST performed ultrasound performed all reassuring Consults/Reason for consult GDM A1 Operations or Procedures None Condition at Discharge: Good Final Diagnosis/Problems List GDM A1 PH Discharge Disposition: Home Discharge Instruct/Medications Diet: Consistent carbohydrate Activity: Light activity Activity comment: Kick counts labor precautions Follow Up/Referral: As scheduled Discharge Statement: "Patient was advised to return to the ER or call 911 if any headaches, dizziness, shortness of breath, chest pain, abdominal pain, bleeding, fevers, or worsening of medical condition. Patient was counseled about treatment plan, medications, possible side effects, patientverbalized understanding. All questions were answered to the best of my ability. This discharge took greater then 30 minutes in planning, reviewing documentation, counseling the patient, and discussing with other team members." ASSESSMENT ASSESSMENT Assessment Visit Coding OBGYN Date of Service: Dec 01, 2024 Billing Provider: NADEEM WANG DO INSPECTOR OUTSIDE PRODUCTION Common Visit Codes: 18055-MBY/OBS SAME DATE (LOW), 09775-RYN/OBS SAME DATE (MOD), 89415-BLF/OBS SAME DATE (HIGH) INSPECTOR OUTSIDE PRODUCTION Procedure Codes: 17235-63- NON-STRESS TEST NADEEM WANG DO Dec 02, 2024 06:30
== END 2024-12-01 09:48 | disposition home or self-care (01) ==
LOC: LDRP 08:08 → UNDOADMOB 08:08 → LDRP 08:15 → UNDODISOB 09:48
PROVIDERS: ADMIT Obstetrics & Gynecology; ATTEND Obstetrics & Gynecology
DX: O60.03 Preterm labor without delivery, third trimester (principal); O24.419 Gestational diabetes mellitus in pregnancy, unspecified control; O13.3 Gestational [pregnancy-induced] hypertension without significant proteinuria, third trimester; Z3A.32 32 weeks gestation of pregnancy; Z79.899 Other long term (current) drug therapy; Z98.890 Other specified postprocedural states
CPT/HCPCS: 59025; 76819; 81002; 82948; 82962; 94760; G0378

== ENCOUNTER 2024-12-04 08:05 | Observation (INO) | payer MEDICAID ==
--- NOTE | 2024-12-04 13:56 | DVH ---
BIOPHYSICAL PROFILE HISTORY: GDMA1, PTL, PIH Comparison Study: US BIOPHYSICAL PROFILE on DOS: 12/01/24, US BIOPHYSICAL PROFILE on DOS: 11/26/24, US BIOPHYSICAL PROFILE on DOS: 11/24/24, US BIOPHYSICAL PROFILE on DOS: 11/13/24 TECHNIQUE: Multiple real-time grayscale sonographic images through the gravid uterus of the fetus wi th duplex Doppler color flow and M-mode spectral analysis FINDINGS: BIOPHYSICAL PROFILE: breathing score: 2 movement score: 2 tone score: 2 Quantitative SANDY score: 2 (SANDY: 15.7 Cm.) Total score: 8 The cervix is closed and measures 3.8 cm Single live fetus in cephalic presentation. heart rate 139 beats per minute. Grade 1, anterior placenta without previa or abruption IMPRESSION: Biophysical profile score: 8
[2024-12-04] MEDS ORDERED: METF-370 PO (13:58)
--- NOTE | 2024-12-04 15:09 | DVHDS2 ---
Physician Discharge Progress N Final Diagnosis: GDM,PTL,GEST [id number] Operations or Procedures: Operations or Procedures NST REACTIVE RFEVIWED,SONO Condition on Discharge: Good Disposition: Home Discharge Instructions: Diet: Consistent carbohydrate Activity: No Restrictions, As Tolerated Medications: NA Follow Up Care: Specialist: 4D Discharge Statement: "Patient was advised to return to the ER or call 911 if any headaches, dizziness, shortness of breath, chest pain, abdominal pain, bleeding, fevers, or worsening of medical condition. Patient was counseled about treatment plan, medications, possible side effects, patientverbalized understanding. All questions were answered to the best of my ability. This discharge took greater then 30 minutes in planning, reviewing documentation, counseling the patient, and discussing with other team members." Visit Coding OBGYN Date of Service: Dec 04, 2024 Billing Provider: SANDRO AGUILAR DO CHANNELING MACHINE RUNNER Common Visit Codes: 22963-[id number] INP/OBS CARE (HIGH) CHANNELING MACHINE RUNNER Procedure Codes: 96358-82- NON-STRESS TEST SANDRO AGUILAR DO Dec 04, 2024 15:09
== END 2024-12-04 14:07 | disposition home or self-care (01) ==
LOC: LDRP 11:37
PROVIDERS: ADMIT Obstetrics & Gynecology; ATTEND Obstetrics & Gynecology
DX: O60.03 Preterm labor without delivery, third trimester (principal); O24.419 Gestational diabetes mellitus in pregnancy, unspecified control; O13.3 Gestational [pregnancy-induced] hypertension without significant proteinuria, third trimester; Z3A.33 33 weeks gestation of pregnancy; Z79.899 Other long term (current) drug therapy; Z98.890 Other specified postprocedural states
CPT/HCPCS: 59025; 76817; 76819; 81002; 82948; 82962; 94760; G0378

== ENCOUNTER 2024-12-08 02:20 | Observation (INO) | payer MEDICAID ==
[~2024-12-08] VITALS: Ht 172.7 cm; Wt 104.3 kg
[~2024-12-08 02:20] MED LIST changes: +METF-370 PO
[2024-12-08 08:18] LABS: Urine Bacteria FEW /hpf (None Seen); Urine Blood Negative /uL (Negative); Urine Clarity Turbid (Clear); Urine Color Light-Yellow (Yellow); Urine Mucus FEW (None Seen); Urine Protein, UAD Negative (Negative); Urine Specific Gravity 1.015 (1.001-1.035); Urine Squamous Epithelial Cell MOD /hpf (<5); Urine Urobilinogen Normal (Negative); Urine WBC 9 /HPF (0-5)
[2024-12-08 08:26] LABS: Creatinine, Urine 85.77 mg/dL (30.0-125.0); Urine Protein/Creatinine Ratio 0.17
[2024-12-08 08:40] LABS: Basophils # (auto) 0 10 ^3/uL (0-0.2); Basophils % (auto) 0.5 % (0.0-2.0); Eosinophils # (auto) 0.1 10 ^3/uL (0-0.8); Eosinophils % (auto) 1.1 % (0.0-7.0); Hematocrit 32.9 % (36.0-46.0); Hemoglobin 10.8 g/dL (12.2-16.2); Lymphocytes # (auto) 2.1 10 ^3/uL (0.4-5.4); Lymphocytes % (auto) 19.8 % (10.0-50.0); Mean Corpuscular Hemoglobin 26.3 pg (28.0-32.0); Mean Corpuscular Volume 79.7 fL (80.0-100.0); Monocytes # (auto) 0.6 10 ^3/uL (0-1.3); Monocytes % (auto) 6.1 % (0.0-12.0); Neutrophils # (auto) 7.6 10 ^3/uL (1.6-8.6); Neutrophils % (auto) 72.5 % (37.0-80.0); Platelet Count (auto) 274 10^3/uL (140-450); Red Blood Cells 4.13 10^6/uL (4.0-5.20); Red Cell Distribution Width 15.3 % (11.8-14.3); White Blood Cell 10.5 10^3/uL (4.4-10.8)
[2024-12-08 08:49] LABS: INR 0.96 (0.9-1.15); Partial Thromboplastin Time 29.3 SEC (24.5-34.5); Prothrombin Time 10.2 sec (9.3-11.8)
[2024-12-08 08:54] LABS: Alanine Aminotransferase 22 U/L (7-40); Albumin 3.8 g/dL (3.2-4.8); Anion Gap 11 (5-15); BUN/Creatinine Ratio 13.2 (10.0-20.0); Calcium 9.2 mg/dL (8.7-10.4); Carbon Dioxide 22 mmol/L (20-31); Chloride 106 mmol/L (98-107); Potassium 3.9 mmol/L (3.5-5.1); Sodium 139 mmol/L (136-145); Total Protein 6.5 g/dL (5.7-8.2); Uric Acid 5.2 mg/dL (3.1-7.8)
[2024-12-08 08:55] LABS: Alkaline Phosphatase 139 U/L (46-116); Bilirubin, Total 0.3 mg/dL (0.2-1.0); Blood Urea Nitrogen 9 mg/dL (9-23); Glucose 121 mg/dL (74-106)
--- NOTE | 2024-12-08 08:58 | DVH ---
BIOPHYSICAL PROFILE HISTORY: GDMA1, PIH, PTL TECHNIQUE: Multiple transabdominal real-time grayscale sonographic images through the gravid uterus of the fetus with duplex Doppler color flow and M-mode spectral analysis FINDINGS: BIOPHYSICAL PROFILE: breathing score: 2 movement score: 2 tone score: 2 Quantitative SANDY score: 2 (SANDY: 16.4 Cm.) Total score: 8 The cervix is closed measuring 3.9 cm. Single live fetus in cephalic presentation. heart rate 16.4 beats per minute. Anterior placenta without previa or abruption IMPRESSION: Biophysical profile score: 8
[2024-12-08] MEDS: TERBUTALINE SULFATE 1 MG/ML 1ML VIAL SC SCH (09:08)
[2024-12-08 10:54] LABS: Aspartate Aminotransferase 19 U/L (13-40)
--- NOTE | 2024-12-09 06:17 | DVHDS2 ---
Discharge Summary Date of Admission Dec 08, 2024 at 07:40 Date of Discharge: Dec 08, 2024 Admitting Diagnosis 33.5 GDMA1, PTL [facility] Labs/Diagnostic Data: Laboratory Results Test 12/08/24 08:23 12/08/24 08:22 12/08/24 07:50 White Blood Count 10.5 10^3/uL (4.4-10.8) Red Blood Count 4.13 10^6/uL (4.0-5.20) Hemoglobin 10.8 g/dL (12.2-16.2) Hematocrit 32.9 % (36.0-46.0) Mean Corpuscular Volume 79.7 fL (80.0-100.0) Mean Corpuscular Hemoglobin 26.3 pg (28.0-32.0) Mean Corpuscular Hemoglobin Concent 33.0 g/dL (32.0-36.0) Red Cell Distribution Width 15.3 % (11.8-14.3) Platelet Count 274 10^3/uL (140-450) Mean Platelet Volume 8.5 fL (6.9-10.8) Neutrophils (%) (Auto) 72.5 % (37.0-80.0) Lymphocytes (%) (Auto) 19.8 % (10.0-50.0) Monocytes (%) (Auto) 6.1 % (0.0-12.0) Eosinophils (%) (Auto) 1.1 % (0.0-7.0) Basophils (%) (Auto) 0.5 % (0.0-2.0) Neutrophils # (Auto) 7.6 10 ^3/uL (1.6-8.6) Lymphocytes # (Auto) 2.1 10 ^3/uL (0.4-5.4) Monocytes # (Auto) 0.6 10 ^3/uL (0-1.3) Eosinophils # (Auto) 0.1 10 ^3/uL (0-0.8) Basophils # (Auto) 0 10 ^3/uL (0-0.2) Nucleated Red Blood Cells 0.0 % Prothrombin Time 10.2 sec (9.3-11.8) Prothrombin Time INR 0.96 (0.9-1.15) Activated Partial Thromboplast Time 29.3 SEC (24.5-34.5) Sodium Level 139 mmol/L (136-145) Potassium Level 3.9 mmol/L (3.5-5.1) Chloride Level 106 mmol/L (98-107) Carbon Dioxide Level 22 mmol/L (20-31) Anion Gap 11 (5-15) Blood Urea Nitrogen 9 mg/dL (9-23) Creatinine 0.68 mg/dL (0.550-1.02) Glomerular Filtration Rate Calc 119 mL/min (>90) BUN/Creatinine Ratio 13.2 (10.0-20.0) Serum Glucose 121 mg/dL (74-106) Uric Acid 5.2 mg/dL (3.1-7.8) Calcium Level 9.2 mg/dL (8.7-10.4) Total Bilirubin 0.3 mg/dL (0.2-1.0) Aspartate Amino Transferase (AST) 19 U/L (13-40) Alanine Aminotransferase (ALT) 22 U/L (7-40) Alkaline Phosphatase 139 U/L (46-116) Total Protein 6.5 g/dL (5.7-8.2) Albumin 3.8 g/dL (3.2-4.8) POC Glucose 125 mg/dl (70-106) Urine Color Light-yellow (Yellow) Urine Clarity Turbid (Clear) Urine pH 6.0 (5.0-9.0) Urine Specific [place] 1.015 (1.001-1.035) Urine Protein Negative (Negative) Urine Ketones Negative (Negative) Urine Blood Negative /uL (Negative) Urine Nitrite Negative (Negative) Urine Bilirubin Negative (Negative) Urine Urobilinogen Normal mg/dL (Negative) Urine Leukocyte Esterase 3+ /uL (Negative) Urine RBC 2 /hpf (0 - 4) Urine Microscopic WBC 9 /HPF (0-5) Urine Squamous Epithelial Cells Mod /hpf (<5) Urine Bacteria Few /hpf (None Seen) Urine Mucus Few (None Seen) Urine Creatinine 85.77 mg/dL (30.0-125.0) Urine Protein/Creatinine Ratio 0.17 Urine Glucose Normal mg/dL (Normal) Urine Total Protein 15.0 mg/dL (1-14) Other Laboratory Tests 12/08/24 08:23 Brief Hx & Hospital Course: NST US performed Operations or Procedures NST US Condition at Discharge: Good Final Diagnosis/Problems List same Discharge Disposition: Home Discharge Instruct/Medications Diet: Regular, Consistent carbohydrate Activity: No Restrictions, As Tolerated Scheduled Aspirin (Aspir-Low), 81 MG PO DAILY, (Reported) Azithromycin (Zithromax Z-Adolfo), 250 MG PO DAILY Famotidine (Famotidine), 20 MG PO BID, (Reported) Labetalol Hcl (Labetalol Hcl), 100 MG PO BID, (Reported) Metformin Hydrochloride (Metformin Hcl), 500 MG PO DAILY, (Reported) Nifedipine (Procardia Capsule), 10 MG PO Q4HR, (Reported) Nifedipine (Procardia Capsule), 30 MG PO DAILY, (Reported) Vit W/ Ferrous Fumara ( One Daily), 1 TAB PO DAILY, (Reported) Scheduled PRN Ondansetron Odt 4MG Tab (Zofran Po), 4 MG PO Q6HP PRN Discharge Statement: "Patient was advised to return to the ER or call 911 if any headaches, dizziness, shortness of breath, chest pain, abdominal pain, bleeding, fevers, or worsening of medical condition. Patient was counseled about treatment plan, medications, possible side effects, patientverbalized understanding. All questions were answered to the best of my ability. This discharge took greater then 30 minutes in planning, reviewing documentation, counseling the patient, and discussing with other team members." ASSESSMENT ASSESSMENT Assessment Visit Coding OBGYN Date of Service: Dec 08, 2024 Billing Provider: NADEEM WANG DO CHILDREN'S LIBRARIAN Common Visit Codes: 54867-TPG/OBS SAME DATE (LOW), 71036-PGU/OBS SAME DATE (MOD), 11192-IAX/OBS SAME DATE (HIGH) CHILDREN'S LIBRARIAN Procedure Codes: 39579-47- NON-STRESS TEST NADEEM WANG DO Dec 09, 2024 06:17
== END 2024-12-08 10:32 | disposition home or self-care (01) ==
LOC: LDRP 07:40
PROVIDERS: ADMIT Obstetrics & Gynecology; ATTEND Obstetrics & Gynecology
DX: O24.419 Gestational diabetes mellitus in pregnancy, unspecified control (principal); O13.3 Gestational [pregnancy-induced] hypertension without significant proteinuria, third trimester; O60.03 Preterm labor without delivery, third trimester; Z3A.33 33 weeks gestation of pregnancy; Z98.890 Other specified postprocedural states; Z79.899 Other long term (current) drug therapy
CPT/HCPCS: 36415; 59025; 76819; 80053; 81001; 81002; 82570; 82948; 82962; 84156; 84550; 85025; 85610; 85730; 94760; 96372; G0378; J3105

== ENCOUNTER 2024-12-10 06:13 | Observation (INO) | payer MEDICAID ==
[~2024-12-10] VITALS: Ht 172.7 cm; Wt 95.3 kg
--- NOTE | 2024-12-10 11:00 | DVH ---
CLINICAL HISTORY: Gestational diabetes. COMPARISON: US BIOPHYSICAL PROFILE on DOS: 12/08/24, US BIOPHYSICAL PROFILE on DOS: 12/04/24, US BIOPHY SICAL PROFILE on DOS: 12/01/24 TECHNIQUE: biophysical profile was performed. Transabdominal sonographic images of the fetus we re obtained. Transvaginal imaging was performed to evaluate the cervix. FINDINGS: The fetus is in cephalic position. heart rate measures 145 BPM. Amniotic fluid index measures 14.8 cm. The placenta is anterior in position without evidence of previa or abruption. The c ervix appears closed on transvaginal images and measures up to 3.2 cm in length. BPP profile is an overall score of 8/8, with 2/2 points for breathing, with at least one episode of breathing over a 30 second duration during a 30 minute observation, 2/2 points for m ovements, with 3 or more discrete body or limb movements, 2/2 points for tone, with one or more episodes of extremity extension with return to flexion, or opening and closing of hand, and 2/ 2 points for amniotic fluid, with at least 1 pocket of amniotic fluid that measures 2 cm in 2 perpend icular planes. IMPRESSION: 1. BPP score of 8/8. 2. Cervix is closed and measures up to 3.2 cm in length.
[2024-12-10] MEDS: ONDANSETRON HCL 4 MG/2 ML VIAL IV PRN (11:19)
[2024-12-10] MEDS: LACTATED RINGER'S 1,000 ML IV ONE (11:25)
--- NOTE | 2024-12-12 08:38 | DVHDS2 ---
Physician Discharge Progress N Final Diagnosis: gdm,pih Operations or Procedures: Operations or Procedures nst reactive reviwed,sono Condition on Discharge: Good Disposition: Home Discharge Instructions: Diet: Consistent carbohydrate Activity: No Restrictions, As Tolerated Medications: na Follow Up Care: Specialist: 4d Discharge Statement: "Patient was advised to return to the ER or call 911 if any headaches, dizziness, shortness of breath, chest pain, abdominal pain, bleeding, fevers, or worsening of medical condition. Patient was counseled about treatment plan, medications, possible side effects, patientverbalized understanding. All questions were answered to the best of my ability. This discharge took greater then 30 minutes in planning, reviewing documentation, counseling the patient, and discussing with other team members." Visit Coding OBGYN Date of Service: Dec 10, 2024 Billing Provider: SANDRO AGUILAR DO WATER HYDRANT INSTALLER Common Visit Codes: 32611-[id number] INP/OBS CARE (HIGH) WATER HYDRANT INSTALLER Procedure Codes: 49962-59- NON-STRESS TEST SANDRO AGUILAR DO Dec 12, 2024 08:38
== END 2024-12-10 12:25 | disposition home or self-care (01) ==
LOC: LDRP 09:48 → UNDOADMOB 09:48 → LDRP 09:58
PROVIDERS: ADMIT Obstetrics & Gynecology; ATTEND Obstetrics & Gynecology
DX: O60.03 Preterm labor without delivery, third trimester (principal); O62.9 Abnormality of forces of labor, unspecified; O24.419 Gestational diabetes mellitus in pregnancy, unspecified control; Z3A.34 34 weeks gestation of pregnancy; Z79.899 Other long term (current) drug therapy; Z98.890 Other specified postprocedural states
CPT/HCPCS: 59025; 76817; 76819; 81002; 82948; 82962; 96361; 96374; G0378; J2405; 96360

== ENCOUNTER 2024-12-15 06:30 | Observation (INO) | payer MEDICAID ==
--- NOTE | 2024-12-15 09:06 | DVH ---
BIOPHYSICAL PROFILE HISTORY: GDMA2/PTL Comparison Study: US BIOPHYSICAL PROFILE on DOS: 12/10/24, US BIOPHYSICAL PROFILE on DOS: 12/08/24, US B IOPHYSICAL PROFILE on DOS: 12/04/24, US BIOPHYSICAL PROFILE on DOS: 12/01/24, US BIOPHYSICAL PROFILE on DOS: 11/26/24 TECHNIQUE: Multiple real-time grayscale sonographic images through the gravid uterus of the fetus wi th duplex Doppler color flow and M-mode spectral analysis FINDINGS: BIOPHYSICAL PROFILE: breathing score: 2 movement score: 2 tone score: 2 Quantitative SANDY score: 2 (SANDY: 12.1 Cm.) Total score: 8 The cervix is closed and measures 3.0 cm Single live fetus in cephalic presentation. heart rate 138 beats per minute. Anterior placenta without previa or abruption IMPRESSION: Biophysical profile score: 8/8
--- NOTE | 2024-12-16 00:28 | DVHDS2 ---
Discharge Summary Date of Admission Dec 15, 2024 at 07:53 Date of Discharge: Dec 15, 2024 Admitting Diagnosis GDM A2 34 weeks labor history of preeclampsia Wounds: None Labs/Diagnostic Data: Laboratory Results Test 12/15/24 09:27 POC Glucose 112 mg/dl (70-106) Brief Hx & Hospital Course: Patient is seen for evaluation in his to perform those ultrasound reassuring Consults/Reason for consult GDM A2 Operations or Procedures None Condition at Discharge: Good Final Diagnosis/Problems List GDM A2 34 weeks Discharge Disposition: Home Discharge Instruct/Medications Diet: Consistent carbohydrate, Cardiac 2g Na,low cholest Activity: No Restrictions, As Tolerated Activity comment: Kick counts labor precautions Follow Up/Referral: As scheduled by weekly Medications: Continue current medications Scheduled Aspirin (Aspir-Low), 81 MG PO DAILY, (Reported) Azithromycin (Zithromax Z-Adolfo), 250 MG PO DAILY Famotidine (Famotidine), 20 MG PO BID, (Reported) Labetalol Hcl (Labetalol Hcl), 100 MG PO BID, (Reported) Metformin Hydrochloride (Metformin Hcl), 500 MG PO DAILY, (Reported) Nifedipine (Procardia Capsule), 10 MG PO Q4HR, (Reported) Nifedipine (Procardia Capsule), 30 MG PO DAILY, (Reported) Vit W/ Ferrous Fumara ( One Daily), 1 TAB PO DAILY, (Reported) Scheduled PRN Ondansetron Odt 4MG Tab (Zofran Po), 4 MG PO Q6HP PRN Discharge Statement: "Patient was advised to return to the ER or call 911 if any headaches, dizziness, shortness of breath, chest pain, abdominal pain, bleeding, fevers, or worsening of medical condition. Patient was counseled about treatment plan, medications, possible side effects, patientverbalized understanding. All questions were answered to the best of my ability. This discharge took greater then 30 minutes in planning, reviewing documentation, counseling the patient, and discussing with other team members." ASSESSMENT ASSESSMENT Assessment Visit Coding OBGYN Date of Service: Dec 16, 2024 Billing Provider: NADEEM WANG DO DECISION ANALYST Common Visit Codes: 88333-[id number] INP/OBS CARE(HIGH), 84298-NJJ/OBS SAME DATE (LOW), 34545-SZL/OBS SAME DATE (MOD), 00161-GHR/OBS SAME DATE (HIGH) DECISION ANALYST Procedure Codes: 06017-44- NON-STRESS TEST NADEEM WANG DO Dec 16, 2024 00:28
== END 2024-12-15 09:50 | disposition home or self-care (01) ==
LOC: LDRP 07:53
PROVIDERS: ADMIT Obstetrics & Gynecology; ATTEND Obstetrics & Gynecology
DX: O60.03 Preterm labor without delivery, third trimester (principal); O24.419 Gestational diabetes mellitus in pregnancy, unspecified control; Z3A.34 34 weeks gestation of pregnancy; Z98.890 Other specified postprocedural states; Z79.899 Other long term (current) drug therapy
CPT/HCPCS: 59025; 76819; 81002; 82948; 82962; 94760; G0378

== ENCOUNTER 2024-12-18 01:53 | Observation (INO) | payer MEDICAID ==
--- NOTE | 2024-12-18 12:51 | DVH ---
BIOPHYSICAL PROFILE HISTORY: gdma1/ptl/pre-e TECHNIQUE: Multiple transabdominal real-time grayscale sonographic images through the gravid uterus of the fetus with duplex Doppler color flow and M-mode spectral analysis FINDINGS: BIOPHYSICAL PROFILE: breathing score: 2 movement score: 2 tone score: 2 Quantitative SANDY score: 2 (SANDY: 14.2 Cm.) Total score: 8 The cervix not well visualized. Single live fetus in cephalic presentation. heart rate 152 beats per minute. Grade 2 anterior placenta without previa or abruption IMPRESSION: Biophysical profile score: 8
[2024-12-18] MEDS ORDERED: CEPH250C PO (12:54)
--- NOTE | 2024-12-23 15:37 | DVHDS2 ---
Physician Discharge Progress N Final Diagnosis: ptl 35 wks Operations or Procedures: Operations or Procedures nst reactive reviwedmonserrato Condition on Discharge: Good Disposition: Home Discharge Instructions: Diet: Consistent carbohydrate Activity: Light activity Medications: na Follow Up Care: Specialist: 2d Discharge Statement: "Patient was advised to return to the ER or call 911 if any headaches, dizziness, shortness of breath, chest pain, abdominal pain, bleeding, fevers, or worsening of medical condition. Patient was counseled about treatment plan, medications, possible side effects, patientverbalized understanding. All questions were answered to the best of my ability. This discharge took greater then 30 minutes in planning, reviewing document ation, counseling the patient, and discussing with other team members." Visit Coding OBGYN Date of Service: Dec 18, 2024 Billing Provider: SANDRO AGUILAR DO RUG SETTER VELVET Common Visit Codes: 06316-[id number] OBS CARE (HIGH) RUG SETTER VELVET Procedure Codes: 43849-55- NON-STRESS TEST SANDRO AGUILAR DO Dec 23, 2024 15:37
== END 2024-12-18 13:08 | disposition home or self-care (01) ==
LOC: LDRP 11:17
PROVIDERS: ADMIT Obstetrics & Gynecology; ATTEND Obstetrics & Gynecology
DX: O60.03 Preterm labor without delivery, third trimester (principal); O24.419 Gestational diabetes mellitus in pregnancy, unspecified control; Z3A.35 35 weeks gestation of pregnancy; Z79.899 Other long term (current) drug therapy; Z98.890 Other specified postprocedural states
CPT/HCPCS: 59025; 76817; 76819; 81002; 82948; 82962; 94760; G0378

== ENCOUNTER 2024-12-22 08:54 | Observation (INO) | payer MEDICAID ==
[~2024-12-22 08:54] MED LIST changes: +CEPH250C PO
--- NOTE | 2024-12-22 09:51 | DVH ---
CLINICAL HISTORY: Gestational diabetes. COMPARISON: US BIOPHYSICAL PROFILE on DOS: 12/18/24, US BIOPHYSICAL PROFILE on DOS: 12/15/24, US BIOPHYS ICAL PROFILE on DOS: 12/10/24 TECHNIQUE: biophysical profile was performed. Transabdominal sonographic images of the fetus we re obtained. Transvaginal imaging was performed to evaluate the cervix. FINDINGS: The fetus is in cephalic position. heart rate measures 141 BPM. Amniotic fluid index measures 14.4 cm. The placenta is anterior in position without evidence of previa or abruption. Cervi x is closed and measures up to 3 cm in length. BPP profile is an overall score of 8/8, with 2/2 points for breathing, with at least one episode of breathing over a 30 second duration during a 30 minute observation, 2/2 points for m ovements, with 3 or more discrete body or limb movements, 2/2 points for tone, with one or more episodes of extremity extension with return to flexion, or opening and closing of hand, and 2/ 2 points for amniotic fluid, with at least 1 pocket of amniotic fluid that measures 2 cm in 2 perpend icular planes. IMPRESSION: 1. BPP score of 8/8. 2. Cervix is closed and measures up to 3 cm in length.
--- NOTE | 2024-12-22 21:54 | DVHDS2 ---
Discharge Summary Date of Admission Dec 22, 2024 at 09:06 Date of Discharge: Dec 22, 2024 Admitting Diagnosis 35 weeks GDM a2 Brief Hx & Hospital Course: US reassuring, NST performed and reactive and reassuring. Condition at Discharge: Good Final Diagnosis/Problems List 35 weeks, GDM A2 Discharge Disposition: Home Discharge Instruct/Medications Diet: Consistent carbohydrate Activity: No Restrictions, As Tolerated Scheduled Aspirin (Aspir-Low), 81 MG PO DAILY, (Reported) Azithromycin (Zithromax Z-Adolfo), 250 MG PO DAILY Cephalexin (Keflex Capsule), 500 MG PO QID, (Reported) Famotidine (Famotidine), 20 MG PO BID, (Reported) Labetalol Hcl (Labetalol Hcl), 100 MG PO BID, (Reported) Metformin Hydrochloride (Metformin Hcl), 500 MG PO DAILY, (Reported) Nifedipine (Procardia Capsule), 10 MG PO Q4HR, (Reported) Nifedipine (Procardia Capsule), 30 MG PO DAILY, (Reported) Vit W/ Ferrous Fumara ( One Daily), 1 TAB PO DAILY, (Reported) Scheduled PRN Ondansetron Odt 4MG Tab (Zofran Po), 4 MG PO Q6HP PRN Discharge Statement: "Patient was advised to return to the ER or call 911 if any headaches, dizziness, shortness of breath, chest pain, abdominal pain, bleeding, fevers, or worsening of medical condition. Patient was counseled about treatment plan, medications, possible side effects, patientverbalized understanding. All questions were answered to the best of my ability. This discharge took greater then 30 minutes in planning, reviewing documentation, counseling the patient, and discussing with other team members." ASSESSMENT ASSESSMENT Assessment Visit Coding OBGYN Date of Service: Dec 22, 2024 Billing Provider: NADEEM WANG DO POWDER ROOM ATTENDANT Common Visit Codes: 11187-SSP/OBS SAME DATE (LOW), 30281-XFZ/OBS SAME DATE (MOD), 93989-FSS/OBS SAME DATE (HIGH) POWDER ROOM ATTENDANT Procedure Codes: 03640-00- NON-STRESS TEST NADEEM WANG DO Dec 22, 2024 21:53
== END 2024-12-22 10:02 | disposition home or self-care (01) ==
LOC: LDRP 08:54 → UNDOADMOB 08:54 → LDRP 09:06
PROVIDERS: ADMIT Obstetrics & Gynecology; ATTEND Obstetrics & Gynecology
DX: O24.419 Gestational diabetes mellitus in pregnancy, unspecified control (principal); O13.3 Gestational [pregnancy-induced] hypertension without significant proteinuria, third trimester; Z3A.35 35 weeks gestation of pregnancy; Z79.899 Other long term (current) drug therapy
CPT/HCPCS: 59025; 76819; 81002; 82948; G0378

== ENCOUNTER 2024-12-25 10:32 | Observation (INO) | payer MEDICAID ==
--- NOTE | 2024-12-25 11:22 | DVH ---
BIOPHYSICAL PROFILE HISTORY: GDMA2/PTL Comparison Study: US BIOPHYSICAL PROFILE on DOS: 12/22/24, US BIOPHYSICAL PROFILE on DOS: 12/18/24, US BIOPHYSICAL PROFILE on DOS: 12/15/24, US BIOPHYSICAL PROFILE on DOS: 12/10/24, US BIOPHYSICAL PROFILE on DOS: 12/08/24 TECHNIQUE: Multiple real-time grayscale sonographic images through the gravid uterus of the fetus wi th duplex Doppler color flow and M-mode spectral analysis FINDINGS: BIOPHYSICAL PROFILE: breathing score: 2 movement score: 2 tone score: 2 Quantitative SANDY score: 2 (SANDY: 14 Cm.) Total score: 8 The cervix is not visualized Single live fetus in cephalic presentation. heart rate 144 beats per minute. Anterior placenta without previa or abruption IMPRESSION: Biophysical profile score: 8
--- NOTE | 2024-12-27 08:17 | DVHDS2 ---
Physician Discharge Progress N Final Diagnosis: gdm 37wks Operations or Procedures: Operations or Procedures nst reactive reviwed,sono Condition on Discharge: Good Disposition: Home Discharge Instructions: Diet: Consistent carbohydrate Activity: No Restrictions, As Tolerated Follow Up/Referral: [facility] at 10:00 am for NST/BPP. Medications: na Follow Up Care: Specialist: 3d Discharge Statement: "Patient was advised to return to the ER or call 911 if any headaches, dizziness, shortness of breath, chest pain, abdominal pain, bleeding, fevers, or worsening of medical condition. Patient was counseled about treatment plan, medications, possible side effects, patientverbalized understanding. All questions were answered to the best of my ability. This discharge took greater then 30 minutes in planning, reviewing documentation , counseling the patient, and discussing with other team members." Visit Coding OBGYN Date of Service: Dec 25, 2024 Billing Provider: SANDRO AGUILAR DO BATTERY PARTS ASSEMBLER Common Visit Codes: 07844-[id number] OBS CARE (HIGH) BATTERY PARTS ASSEMBLER Procedure Codes: 40722-30- NON-STRESS TEST SANDRO AGUILAR DO Dec 27, 2024 08:17
== END 2024-12-25 12:02 | disposition home or self-care (01) ==
LOC: UNDOADMOB 10:32 → LDRP 10:32
PROVIDERS: ADMIT Obstetrics & Gynecology; ATTEND Obstetrics & Gynecology
DX: O24.419 Gestational diabetes mellitus in pregnancy, unspecified control (principal); O60.03 Preterm labor without delivery, third trimester; Z3A.37 37 weeks gestation of pregnancy; Z79.899 Other long term (current) drug therapy
CPT/HCPCS: 59025; 76819; 81002; 82948; 82962; G0378

== ENCOUNTER 2024-12-29 07:01 | Observation (INO) | payer MEDICAID ==
--- NOTE | 2024-12-29 09:59 | DVH ---
BIOPHYSICAL PROFILE HISTORY: GDMA2 Comparison Study: US BIOPHYSICAL PROFILE on DOS: 12/25/24, US BIOPHYSICAL PROFILE on DOS: 12/22/24, US BIOPHYSICAL PROFILE on DOS: 12/18/24, US BIOPHYSICAL PROFILE on DOS: 12/15/24, US BIOPHYSICAL PROFILE on DOS: 12/10/24 TECHNIQUE: Multiple real-time grayscale sonographic images through the gravid uterus of the fetus wi th duplex Doppler color flow and M-mode spectral analysis FINDINGS: BIOPHYSICAL PROFILE: breathing score: 0.7 movement score: 2 tone score: 2 Quantitative SANDY score: 16.41 (SANDY: 16.41 Cm.) Total score: 8 The cervix is not visualized Single live fetus in cephalic presentation. heart rate 145 145.29 beats per minute. Anterior placenta without previa or abruption IMPRESSION: Biophysical profile score: 8
--- NOTE | 2024-12-30 14:27 | DVHDS2 ---
Physician Discharge Progress N Final Diagnosis: [id number] Operations or Procedures: Operations or Procedures nst reactive reviwed,sono Condition on Discharge: Good Disposition: Home Discharge Instructions: Diet: Consistent carbohydrate Activity: No Restrictions, As Tolerated Medications: na Follow Up Care: Specialist: 1w Discharge Statement: "Patient was advised to return to the ER or call 911 if any headaches, dizziness, shortness of breath, chest pain, abdominal pain, bleeding, fevers, or worsening of medical condition. Patient was counseled about treatment plan, medications, possible side effects, patientverbalized understanding. All questions were answered to the best of my ability. This discharge took greater then 30 minutes in planning, reviewing documentation, counseling the patient, and discussing with other team members." Visit Coding OBGYN Date of Service: Dec 29, 2024 Billing Provider: SANDRO AGUILAR DO PLANT SCIENCE PROFESSOR Common Visit Codes: 06909-[id number] OBS CARE (HIGH) PLANT SCIENCE PROFESSOR Procedure Codes: 61790-93- NON-STRESS TEST SANDRO AGUILAR DO Dec 30, 2024 14:27
== END 2024-12-29 10:57 | disposition home or self-care (01) ==
LOC: LDRP 09:15
PROVIDERS: ADMIT Obstetrics & Gynecology; ATTEND Obstetrics & Gynecology
DX: O24.419 Gestational diabetes mellitus in pregnancy, unspecified control (principal); Z98.890 Other specified postprocedural states; Z79.899 Other long term (current) drug therapy; Z3A.36 36 weeks gestation of pregnancy
CPT/HCPCS: 59025; 76819; 81002; 82948; 82962; 94760; G0378

== ENCOUNTER 2024-12-31 21:46 | Observation (INO) | payer MEDICAID ==
[~2024-12-31] VITALS: Ht 172.7 cm; Wt 93.4 kg
--- NOTE | 2024-12-31 23:00 | DVH ---
BIOPHYSICAL PROFILE HISTORY: GDMA2 TECHNIQUE: Multiple transabdominal real-time grayscale sonographic images through the gravid uterus of the fetus with duplex Doppler color flow and M-mode spectral analysis FINDINGS: BIOPHYSICAL PROFILE: breathing score: 2 movement score: 2 tone score: 2 Quantitative SANDY score: 2 (SANDY: 14.7 Cm.) Total score: 8 [ Single live fetus in cephalic presentation. heart rate 142 beats per minute. anterior placenta without previa or abruption Single live fetus at 37 weeks ASHELY of 01/21/2025 IMPRESSION: 1. Biophysical profile score: 8/8 2. No acute sonographic abnormalities.
[2024-12-31 23:15] LABS: Hemoglobin 11.1 g/dL (12.2-16.2); Nucleated Red Blood Cells % 0.1 %
[2024-12-31 23:17] LABS: Hematocrit 34.5 % (36.0-46.0); Mean Corpuscular Hemoglobin 25.1 pg (28.0-32.0); Mean Corpuscular Volume 78.4 fL (80.0-100.0)
--- NOTE | 2024-12-31 23:19 | DVHDS2 ---
Physician Discharge Progress N Final Diagnosis: testing for GDM, A2/GHTN Secondary Diagnosis: prodromal labor Operations or Procedures: Operations or Procedures S: 34yo IUP@37.0wks presents to OB triage with c/o UCs that got stronger today and headache. Denies LOF/VB/vision changes/RUQ pain. Endorses +FM. PNC with Dr. Youngblood, complicated by GDM, A2, PIH, PTL. Pt reports stopping procardia and labetalol last week, only taking PNV/ASA/metformin. O: VSS except for labile elevated BPs (normotensive prior to D/C) NST reactive TOCO: irregular SVE by RN: //3 Labetalol 100mg PO given per Dr. Youngblood's order Tylenol 1000mg PO given for headache Vistaril 50mg PO given for prodromal labor Laboratory Tests Test 12/31/24 22:57 12/31/24 23:38 Range/Units White Blood Count 14.4 H 4.4-10.8 10^3/uL Red Blood Count 4.40 4.0-5.20 10^6/uL Hemoglobin 11.1 L 12.2-16.2 g/dL Hematocrit 34.5 L 36.0-46.0 % Mean Corpuscular Volume 78.4 L 80.0-100.0 fL Mean Corpuscular Hemoglobin 25.1 L 28.0-32.0 pg Mean Corpuscular Hemoglobin Concent 32.1 32.0-36.0 g/dL Red Cell Distribution Width 15.2 H 11.8-14.3 % Platelet Count 282 140-450 10^3/uL Mean Platelet Volume 8.9 6.9-10.8 fL Neutrophils (%) (Auto) 74.7 37.0-80.0 % Lymphocytes (%) (Auto) 18.5 10.0-50.0 % Monocytes (%) (Auto) 6.0 0.0-12.0 % Eosinophils (%) (Auto) 0.6 0.0-7.0 % Basophils (%) (Auto) 0.2 0.0-2.0 % Neutrophils # (Auto) 10.8 H 1.6-8.6 10 ^3/uL Lymphocytes # (Auto) 2.7 0.4-5.4 10 ^3/uL Monocytes # (Auto) 0.9 0-1.3 10 ^3/uL Eosinophils # (Auto) 0.1 0-0.8 10 ^3/uL Basophils # (Auto) 0 0-0.2 10 ^3/uL Nucleated Red Blood Cells 0.1 % Prothrombin Time 10.2 9.3-11.8 sec Prothrombin Time INR 0.96 0.9-1.15 Activated Partial Thromboplast Time 29.4 24.5-34.5 SEC Sodium Level 137 136-145 mmol/L Potassium Level 3.5 3.5-5.1 mmol/L Chloride Level 105 98-107 mmol/L Carbon Dioxide Level 19 L 20-31 mmol/L Anion Gap 13 5-15 Blood Urea Nitrogen 8 L 9-23 mg/dL Creatinine 0.72 0.550-1.02 mg/dL Glomerular Filtration Rate Calc 114 >90 mL/min BUN/Creatinine Ratio 11.1 10.0-20.0 Serum Glucose 106 74-106 mg/dL Uric Acid 6.4 3.1-7.8 mg/dL Calcium Level 8.9 8.7-10.4 mg/dL Total Bilirubin 0.4 0.2-1.0 mg/dL Aspartate Amino Transferase (AST) 31 13-40 U/L Alanine Aminotransferase (ALT) 29 7-40 U/L Alkaline Phosphatase 198 H 46-116 U/L Total Protein 6.6 5.7-8.2 g/dL Albumin 3.9 3.2-4.8 g/dL Urine Creatinine 253.41 H 30.0-125.0 mg/dL Urine Protein/Creatinine Ratio 0.18 Urine Total Protein 45.1 H 1-14 mg/dL A: 34yo IUP@37.0wks GDM,A2 Gestational HTN prodromal labor P: D/C home FKC/PreE/Labor precautions reviewed f/u on 01/03/25 with [address] Youngblood consulted, Rx sent for labetalol 200mg PO BID. Other Interventions Other Interventions [address] [address] Ph: [phone] DIAGNOSTIC IMAGING Diagnostic Imaging Report : [id number] Signed PATIENT: TOMMY SIFUENTES RACCT: [id number] UNIT: [id number] : 1990 LOC: [facility] ROOM / BED: TRIAGE2 / A AGE / SEX: 34 / F ADM STATUS: ADM IN SERVICE 99 ORDERING PHYSICIAN: KARON HERNANDES CNM PROCEDURE(s): BPP - BIOPHYSICAL PROFILE REASON: GDMA2 ORDER NUMBER(s): [id number], ACCESSION NUMBER(s): [id number] BIOPHYSICAL PROFILE HISTORY: GDMA2 TECHNIQUE: Multiple transabdominal real-time grayscale sonographic images through the gravid uterus of the fetus with duplex Doppler color flow and M-mode spectral analysis FINDINGS: BIOPHYSICAL PROFILE: breathing score: 2 movement score: 2 tone score: 2 Quantitative SANDY score: 2 (SANDY: 14.7 Cm.) Total score: 8 [ Single live fetus in cephalic presentation. heart rate 142 beats per minute. anterior placenta without previa or abruption Single live fetus at 37 weeks ASHELY of 01/21/2025 IMPRESSION: 1. Biophysical profile score: 8/8 2. No acute sonographic abnormalities. ATED BY: JAKE FOX MD DICTATED DATE/TIME: 12/31/242256 SIGNED BY: JAKE FOX MD SIGNED DATE/TIME: 12/31/242256 CC: Condition on Discharge: Stable Disposition: Home Discharge Instructions: Diet: Consistent carbohydrate Activity: No Restrictions, As Tolerated Medications: see med list Follow Up Care: Specialist: f/u on 01/03/25 with 24 hour urine collection Discharge Statement: "Patient was advised to return to the ER or call 911 if any headaches, dizziness, shortness of breath, chest pain, abdominal pain, bleeding, fevers, or worsening of medical condition. Patient was counseled about treatment plan, medications, possible side effects, patientverbalized understanding. All questions were answered to the best of my ability. This discharge took greater then 30 minutes in planning, reviewing documentation, counseling the patient, and discussing with other team members." Visit Coding OBGYN Date of Service: Jan 01, 2025 Billing Provider: KARON HERNANDES CNM CHRONOMETER REPAIRER Common Visit Codes: 08041-[id number] OBS CARE (HIGH) CHRONOMETER REPAIRER Procedure Codes: 94584-17- NON-STRESS TEST KARON HERNANDES [facility] Dec 31, 2024 23:19
[2024-12-31 23:32] LABS: Alanine Aminotransferase 29 U/L (7-40); Albumin 3.9 g/dL (3.2-4.8); Alkaline Phosphatase 198 U/L (46-116); Anion Gap 13 (5-15); BUN/Creatinine Ratio 11.1 (10.0-20.0); Bilirubin, Total 0.4 mg/dL (0.2-1.0); Blood Urea Nitrogen 8 mg/dL (9-23); Calcium 8.9 mg/dL (8.7-10.4); Carbon Dioxide 19 mmol/L (20-31); Chloride 105 mmol/L (98-107); Glucose 106 mg/dL (74-106); Potassium 3.5 mmol/L (3.5-5.1); Sodium 137 mmol/L (136-145); Total Protein 6.6 g/dL (5.7-8.2); Uric Acid 6.4 mg/dL (3.1-7.8)
[2024-12-31] MEDS: hydrOXYzine 25 MG TAB or CAP PO PRN (23:34)
[2025-01-01 00:15] LABS: INR 0.96 (0.9-1.15); Partial Thromboplastin Time 29.4 SEC (24.5-34.5); Prothrombin Time 10.2 sec (9.3-11.8)
[2025-01-01 00:17] LABS: Protein, Urine 45.1 mg/dL (1-14)
[2025-01-01] MEDS ORDERED: LABETALOL HCL 200 MG TAB PO STA (00:38)
[2025-01-01] MEDS ORDERED: LABE200T33 PO (00:40)
[2025-01-01] MEDS ORDERED: ACETAMINOPHEN 500 MG TAB or CAP PO ONE (00:45)
== END 2025-01-01 01:08 | disposition home or self-care (01) ==
LOC: LDRP 21:46
PROVIDERS: ADMIT Obstetrics & Gynecology; ATTEND Obstetrics & Gynecology
DX: O24.415 Gestational diabetes mellitus in pregnancy, controlled by oral hypoglycemic drugs (principal); O13.3 Gestational [pregnancy-induced] hypertension without significant proteinuria, third trimester; O62.0 Primary inadequate contractions; Z3A.37 37 weeks gestation of pregnancy; Z79.899 Other long term (current) drug therapy; Z79.84 Long term (current) use of oral hypoglycemic drugs
CPT/HCPCS: 36415; 59025; 76819; 80053; 81002; 82570; 84156; 84550; 85025; 85610; 85730; 94760; G0378

== ENCOUNTER 2025-01-03 08:49 | Observation (INO) | payer MEDICAID ==
[~2025-01-03 08:49] MED LIST changes: -AZITTAB PO; -CEPH250C PO; -FAMO-12 PO; -LABE100T7 PO; +LABE200T33 PO; -NIFE10CA52 PO; -ZOFR4T PO
[2025-01-03 11:53] LABS: Urine Protein, UAD TRACE (Negative)
[2025-01-03 12:00] LABS: Protein, Urine 17.5 mg/dL (1-14)
--- NOTE | 2025-01-03 12:14 | DVHDS2 ---
Physician Discharge Progress N Final Diagnosis: IUP 37 wk, GDMA Gest HTN Secondary Diagnosis: Encounter for NST/BPP Commentary: Commentary NST/BPP SANDY all WNL 24hr urine protein WNL BP's normal Condition on Discharge: Stable Disposition: Home Discharge Instructions: Diet: Consistent carbohydrate Activity: Light activity Follow Up/Referral: As scheduled w/ DR Youngblood. Delivery plan per Dr Youngblood Medications: na Follow Up Care: Discharge Statement: "Patient was advised to return to the ER or call 911 if any headaches, dizziness, shortness of breath, chest pain, abdominal pain, bleeding, fevers, or worsening of medical condition. Patient was counseled about treatment plan, medications, possible side effects, patientverbalized understanding. All questions were answered to the best of my ability. This discharge took greater then 30 minutes in planning, reviewing documentation, counseling the patient, and discussing with other team members." Visit Coding OBGYN Date of Service: Jan 03, 2025 Billing Provider: JANI ARTHUR DO PHARMACEUTICAL SERVICE REPRESENTATIVE Common Visit Codes: 74890-UXN/OBS SAME DATE (MOD) JANI ARTHUR DO Jan 03, 2025 12:14
--- NOTE | 2025-01-03 12:26 | DVH ---
BIOPHYSICAL PROFILE HISTORY: PIH/ GDMA2 TECHNIQUE: Multiple transabdominal real-time grayscale sonographic images through the gravid uterus o f the fetus with duplex doppler color flow and M-mode spectral analysis FINDINGS: BIOPHYSICAL PROFILE: breathing score: 2 movement score: 2 tone score: 2 Quantitative SANDY score: 2 (SANDY: 15.5 cm.) Total score: 8/8 Single live fetus in cephalic presentation. heart rate 160 beats per minute. Grade 1 anterior placenta without previa or abruption Biophysical profile score 8/8 corresponding to an ASHELY of 01/21/25 IMPRESSION: Biophysical profile score: 8/8
[2025-01-03 12:53] LABS: Protein, Urine 13.5 mg/dL (1-14)
[2025-01-03 14:16] LABS: 24 Hr. Total Protein, Urine 108.0 mg/24 Hr (<149.1); Urine Total Volume, 24 Hours 800.0 mL
== END 2025-01-03 12:47 | disposition home or self-care (01) ==
LOC: LDRP 11:02
PROVIDERS: ADMIT Obstetrics & Gynecology; ATTEND Obstetrics & Gynecology
DX: O24.419 Gestational diabetes mellitus in pregnancy, unspecified control (principal); O13.3 Gestational [pregnancy-induced] hypertension without significant proteinuria, third trimester; Z98.890 Other specified postprocedural states; Z79.899 Other long term (current) drug therapy; Z3A.37 37 weeks gestation of pregnancy
CPT/HCPCS: 59025; 76819; 81001; 81002; 82570; 82948; 82962; 84156; 94760; G0378

== ENCOUNTER 2025-01-06 11:00 | Inpatient (IN) | payer MEDICAID ==
[~2025-01-06] VITALS: Ht 172.7 cm; Wt 94.8 kg
[2025-01-06] MEDS ORDERED: LIDOCAINE 2%HCL (LOCAL ANESTH.) INJ 20ML MDV IJ PRN (11:15)
[2025-01-06 11:59] LABS: Hematocrit 33.0 % (36.0-46.0); Hemoglobin 10.7 g/dL (12.2-16.2); Mean Corpuscular Hemoglobin 25.0 pg (28.0-32.0); Mean Corpuscular Volume 77.0 fL (80.0-100.0); Nucleated Red Blood Cells % 0.0 %
[2025-01-06 12:04] LABS: INR 0.93 (0.9-1.15); Partial Thromboplastin Time 29.4 SEC (24.5-34.5); Prothrombin Time 9.9 sec (9.3-11.8)
[2025-01-06 12:08] LABS: Alanine Aminotransferase 15 U/L (7-40); Albumin 3.8 g/dL (3.2-4.8); Anion Gap 10 (5-15); BUN/Creatinine Ratio 12.2 (10.0-20.0); Blood Urea Nitrogen 9 mg/dL (9-23); Calcium 9.5 mg/dL (8.7-10.4); Carbon Dioxide 21 mmol/L (20-31); Chloride 106 mmol/L (98-107); Potassium 3.9 mmol/L (3.5-5.1); Sodium 137 mmol/L (136-145); Total Protein 6.3 g/dL (5.7-8.2)
[2025-01-06 12:10] LABS: Alkaline Phosphatase 179 U/L (46-116); Bilirubin, Total 0.3 mg/dL (0.2-1.0); Glucose 106 mg/dL (74-106)
[2025-01-06 12:19] LABS: Uric Acid 6.5 mg/dL (3.1-7.8)
[2025-01-06] MEDS: WITCH HAZEL-GLYCERIN PAD TOP PRN (12:28)
[2025-01-06] MEDS: DERMOPLAST 60ML BOTTLE TOP PRN (12:28)
[2025-01-06] MEDS: PHISODERM TOP SOLN 240ML BTL TOP PRN (12:28)
[2025-01-06] MEDS: LACTATED RINGER'S 1,000 ML IV SCH (12:32)
--- NOTE | 2025-01-06 13:03 | DVHHP2 ---
OB CC & HPI Date Date of Admission: Jan 06, 2025 Patient Identification: : 3 Para: 2 EDC: Jan 21, 2025 EGA: 37.6wks Chief Complaints: Reason for admission: induction of labor Indication for induction: other (GHTN/GDM, A2) History of Present Complaints 34yo IUP@37.6wks presents for IOL for GHTN/GDM, A2 Denies UCs/LOF/VB/COSTA/vision changes/RUQ pain. Endorses +FM. PNC: Routine PNC with Dr. Youngblood, adequate visits, PNC complicated by GHTN/GDM, A2. Dating based on first trimester sono, GBS negative. OB hx: #1 - , 30wks, eclampsia, 3lbs, female #2 - , 38wks, GHTN, 7lbs 15oz, Female #3 - current Past Medical History Cardiac: No pertinent Hx Pulmonary: No pertinent Hx Central Nervous System: No pertinent Hx GI: No pertinent Hx Hemotology/Oncology: No pertinent Hx Hepatobiliary: No pertinent Hx Psychiatric: No pertinent Hx Musculoskeletal: No pertinent Hx Rheumotologic: No pertinent Hx Infectious Disease: No peritnent Hx ENT: No pertinent Hx Renal/: No pertinent Hx Endocrine: No pertinent Hx Dermatology: No pertinent Hx Past Surgical History: Other (breast reduction in 2018) OB History OB History Care: Good Care Ultrasounds: Normal mid trimester US Obstetrical Complications: Gestational Diabetes (A2), Gestational Hypertension Medical Complications: None Allergies: Coded Allergies: NO KNOWN ALLERGIES (Unverified , 10/05/24) Home Meds Active Scripts Labetalol Hcl (Labetalol Hcl) 200 Mg Tab, 1 TAB PO BID, #60 TAB 2 Refills take twice a day per Dr. Youngblood's order Prov:KARON HERNANDES CNKelsey 01/01/25 Reported Medications Metformin Hydrochloride (Metformin Hcl) 500 Mg Tab, 500 MG PO DAILY for 30 Days, MG 12/04/24 Aspirin (Aspir-Low) 81 Mg Tab, 81 MG PO DAILY for 30 Days, MG 11/24/24 Vit W/ Ferrous Fumara ( One Daily) Daily Tab, 1 TAB PO DAILY, #90 TAB 3 Refills 10/05/24 Discontinued Reported Medications Cephalexin (KEFLEX CAPSULE) 250 Mg Cp, 500 MG PO QID 12/18/24 Nifedipine (PROCARDIA CAPSULE) 10 Mg Cp, 30 MG PO DAILY, CAP 12/01/24 Famotidine (Famotidine) 20 Mg Tab, 20 MG PO BID for 30 Days, MG 11/24/24 Nifedipine (PROCARDIA CAPSULE) 10 Mg Cp, 10 MG PO Q4HR, CAP 11/17/24 Labetalol Hcl (Labetalol Hcl) 100 Mg Tab, 100 MG PO BID for 30 Days, MG 11/17/24 Discontinued Scripts Ondansetron Odt 4MG Tab (ZOFRAN PO) 4 Mg Tb, 4 MG PO Q6HP PRN for 20 Days, #80 TAB ODT TAB-DISSOLVE IN MOUTH, THEN SWALLOW Prov:KARON HERNANDES CN 11/27/24 Azithromycin (Zithromax Z-Adolfo) 250 Mg Tab, 250 MG PO DAILY for 5 Days, #6 TAB Day 1 take 2 tablets, day 2-5 take 1 tablet a day Prov:KARON HERNANDES [facility] 10/29/24 Current Medications Current Medications Medications (Trade) Dose Ordered Sig/Stas Route PRN Reason Start Time Stop Time Status Last Admin Lactated Ringer's 1,000 ml @ 125 mls/hr Q8H IV 01/06/25 11:15 01/06/25 12:32 Witch Amy (Tucks) 1 pad PRN PRN TOP PERINEAL AREA DISCOMFORT 01/06/25 11:15 01/06/25 12:28 Sodium Lauryl Sulfate (Phisoderm) 240 ml PRN PRN TOP PERINEAL AREA DISCOMFORT 01/06/25 11:15 01/06/25 12:28 Benzocaine (Dermoplast) 1 applic PRN PRN TOP PERINEAL AREA DISCOMFORT 01/06/25 11:15 01/06/25 12:28 Lidocaine HCl (Xylocaine) 20 ml ONCE PRN IJ PERINEAL AREA DISCOMFORT 01/06/25 11:15 Labetalol HCl (Normodyne Tablet) 200 mg Q12HR PO 01/06/25 20:00 Misoprostol (Cytotec) 50 mcg Q4HPRN PRN PO CERVICAL RIPENING 01/06/25 12:15 01/06/25 12:30 Family & Social History Family/Social History Past Family/Social History: FMH - heart failure and asthma 07/21/24 - false positive RPR 1:1 and TPPA negative 07/23/24 - RPR non-reactive October 2024 - RPR non-reactive Blood Type: B+ Rubella: immune RPR/VDRL: Negative GBS Status: Negative HBsAG: Negative Review of Systems Constitutional: No symptom reported Ears, Nose, & Throat: No symptom reported Eyes: No symptom reported Pulmonary/Respiratory: No symptom reported Cardiovascular: No symptom reported Gastrointestinal: No symptom reported Genitourinary: No symptom reported Musculoskeletal: No symptom reported Skin: No symptom reported Psychiatric: No symptom reported Endocrine: No symptom reported Hemotologic/Lymphatic: No symptom reported OB Admission Exam Physical Exam Vitals: VSS except GHTN (see CPN) EFW in office: 8lbs 5oz, vertex HEENT: TMs Normal, Fontanelles Normal, Nasal Mucosa Normal, Eyes non-injected, Oropharynx Normal, PERRLA, Moist Membranes, EOMI Heart: Rhythm Normal Lungs: Clear Abdomen: Gravid Extremities: Normal Reflexes: Normal Pelvic Exam: SVE by RN: / Membranes: Intact Heart Rate: 140's Accelerations: Accelerations Present Decelerations: No Decelerations Aircraft Dispatcher Variability: Average (6-25) Contractions on Admission: 6-10 Minutes Apart Intensity: Mild OB Plan Plan Admitting Diagnosis: Induction of labor for GHTN Plan: Induction Induction Methd: Misoprostol protocol Other Plan: A: 34yo IUP@37.1wks Induction of Labor Gestational HTN GDM, A2 Category I EFM Intact Membranes GBS negative P: Admit to L&D Informed consent obtained Discussed risks, benefits, alternatives of IOL for GHTN with pt. Pt consents to IOL with PO cytotec. Blood glucose checks q4hrs then in active labor q2hrs. monitoring per order Routine labs and PreEclampsia labs ordered Pain mgmt PRN Frequent position changes in and out of bed encouraged Limit SVE unless necessary Intrauterine resuscitation PRN Anticipate Dr. Youngblood offered primary section, pt declined. Will continue to co- manage with Dr. Youngblood. Continue labetalol 200mg PO BID per Dr. Youngblood. RN made aware of Dr. Youngblood's severe range BP parameter (DBP>160 and/or SBP>95) and to call Dr. Youngblood directly for GHTN BP mgmt. Visit Coding OBGYN Date of Service: Jan 06, 2025 Billing Provider: KARON HERNANDES CNM NOVELTY TWISTER OPERATOR Common Visit Codes: 81581-[id number] INP/OBS CARE (HIGH) NOVELTY TWISTER OPERATOR Procedure Codes: 95047-55- NON-STRESS TEST KARON HERNANDES CNM Jan 06, 2025 13:03
[2025-01-06 13:50] LABS: Urine Protein, UAD Negative (Negative)
[2025-01-06 13:52] LABS: Amphetamine Screen, Urine Neg (NEGATIVE); Barbiturate Scree,Urine Neg (NEGATIVE); Benzodiazephine Screen, Urine Neg (NEGATIVE); Cannabinoid Screen, Urine Neg (NEGATIVE); Cocaine Screen, Urine Neg (NEGATIVE); Opiate Scree,Urine Neg (NEGATIVE); Phencyclidine Screen, Urine Neg (NEGATIVE)
[2025-01-06 14:23] LABS: Protein, Urine < 6.0 mg/dL (1-14)
[2025-01-06] MEDS ORDERED: NALOXONE HCL 0.4 MG/ML VIAL IV ONE (17:00)
[2025-01-06] MEDS ORDERED: LIDOCAINE HCL 2 %PF INJ 10ML AMP IJ ONE (17:00)
[2025-01-06] MEDS: LACTATED RINGER'S 1,000 ML IV ONE (17:27)
--- NOTE | 2025-01-06 17:56 | DVHPN2 ---
CNM Labor Progress Note Date and Time Seen Date Seen: Jan 06, 2025 Time Seen: 17:00 Subjective Subjective Comment Pt feeling okay, wants epidural before IV pitocin. Denies COSTA/vision changes/RUQ pain. Objective Vital Signs VSS except GHTN, see CPN Monitoring Method Monitoring Method: External Heart Rate Heart Rate Baseline: 135 Heart Rate Variability: Moderate Presence of FHR Accelerations: Yes Presence of FHR Decelerations: No Are all 5 Components of the FH: Yes Contractions Contractions Frequency: Other (q2-6 min) Duration of Contraction: 80 Contractions Intensity: Moderate Contractions Resting Tone: Relaxed Membranes Membranes: Intact Vaginal Exam Vag Exam Deferred: Yes (last SVE by RN) Vaginal Exam Dilation: 3 Vaginal Exam Effacement: 70 Vaginal Exam Station: -3 Vaginal Exam Presentation: VTX Medications Medications - Pitocin: No Medications - Pain Medications: PRN Medication - Epidural: No Medication - Other 1 dose of PO cytotec Lab Results Lab Results Vital Signs Date Time Temp Pulse Resp B/P (MAP) Pulse Ox O2 Delivery O2 Flow Rate FiO2 01/06/25 19:05 166/105 Current Medications Medications (Trade) Dose Ordered Sig/Stas Start Time Stop Time Status Last Admin Dose Admin Lactated Ringer's 1,000 ml @ 125 mls/hr Q8H 01/06/25 11:15 01/06/25 12:32 125 MLS/HR Witch Amy (Tucks) 1 pad PRN PRN 01/06/25 11:15 01/06/25 12:28 1 PAD Sodium Lauryl Sulfate (Phisoderm) 240 ml PRN PRN 01/06/25 11:15 01/06/25 12:28 240 ML Benzocaine (Dermoplast) 1 applic PRN PRN 01/06/25 11:15 01/06/25 12:28 1 APPLIC Lidocaine HCl (Xylocaine) 20 ml ONCE PRN 01/06/25 11:15 Oxytocin 500 ml @ 999 mls/hr Q31M ONCE 01/06/25 11:15 01/06/25 12:20 DC Oxytocin 500 ml @ 125 mls/hr Q4H ONCE 01/06/25 11:45 01/06/25 15:44 DC Labetalol HCl (Normodyne Tablet) 200 mg Q12HR 01/06/25 20:00 Misoprostol (Cytotec) 50 mcg Q4HPRN PRN 01/06/25 12:15 01/06/25 12:30 50 MCG Ondansetron HCl (Zofran) 4 mg Q6HPRN PRN 01/06/25 13:15 Oxytocin 1,000 ml @ 6 ml/hr Q24H 01/06/25 16:30 01/06/25 19:03 6 ML/HR Naloxone HCl (Narcan) 0.2 mg PRN ONCE 01/06/25 17:00 01/06/25 17:08 DC Ephedrine Sulfate (ePHEDrine SULFATE) 10 mg PRN ONCE 01/06/25 17:00 01/06/25 17:08 DC Fentanyl Citrate 100 mcg ONCE ONCE 01/06/25 17:00 01/06/25 17:08 DC 01/06/25 19:05 100 MCG Lidocaine HCl (Xylocaine-Pf 2% Injection) 10 ml ONCE ONCE 01/06/25 17:00 01/06/25 17:08 DC Lactated Ringer's 1,000 ml @ 1,000 mls/hr Q1H ONCE 01/06/25 17:00 01/06/25 17:59 DC 01/06/25 17:27 1,000 MLS/HR Laboratory Tests Test 01/06/25 15:31 01/06/25 12:50 01/06/25 11:32 Range/Units POC Glucose 114 H 70-106 mg/dl Urine Color Light-yellow Yellow Urine Clarity Clear Clear Urine pH 5.5 5.0-9.0 Urine Specific [place] 1.017 1.001-1.035 Urine Protein Negative Negative Urine Ketones Negative Negative Urine Blood 2+ H Negative /uL Urine Nitrite Negative Negative Urine Bilirubin Negative Negative Urine Urobilinogen Normal Negative mg/dL Urine Leukocyte Esterase Negative Negative /uL Urine RBC 2 0 - 4 /hpf Urine Microscopic WBC 1 0-5 /HPF Urine Squamous Epithelial Cells Few <5 /hpf Urine Bacteria None seen None Seen /hpf Urine Mucus Few None Seen Urine Creatinine 130.58 H 30.0-125.0 mg/dL Urine Protein/Creatinine Ratio < 0.05 Urine Glucose Normal Normal mg/dL Urine Total Protein < 6.0 1-14 mg/dL Urine Opiates Screen Neg NEGATIVE Urine Fentanyl Screen Neg NEGATIVE Urine Barbiturates Screen Neg NEGATIVE Urine Phencyclidine Screen Neg NEGATIVE Urine Amphetamines Screen Neg NEGATIVE Urine Benzodiazepines Screen Neg NEGATIVE Urine Cocaine Screen Neg NEGATIVE Urine Cannabinoids Screen Neg NEGATIVE White Blood Count 10.2 # 4.4-10.8 10^3/uL Red Blood Count 4.28 4.0-5.20 10^6/uL Hemoglobin 10.7 L 12.2-16.2 g/dL Hematocrit 33.0 L 36.0-46.0 % Mean Corpuscular Volume 77.0 L 80.0-100.0 fL Mean Corpuscular Hemoglobin 25.0 L 28.0-32.0 pg Mean Corpuscular Hemoglobin Concent 32.5 32.0-36.0 g/dL Red Cell Distribution Width 15.5 H 11.8-14.3 % Platelet Count 277 140-450 10^3/uL Mean Platelet Volume 9.1 6.9-10.8 fL Neutrophils (%) (Auto) 71.9 37.0-80.0 % Lymphocytes (%) (Auto) 20.3 10.0-50.0 % Monocytes (%) (Auto) 6.7 0.0-12.0 % Eosinophils (%) (Auto) 0.9 0.0-7.0 % Basophils (%) (Auto) 0.2 0.0-2.0 % Neutrophils # (Auto) 7.3 1.6-8.6 10 ^3/uL Lymphocytes # (Auto) 2.1 0.4-5.4 10 ^3/uL Monocytes # (Auto) 0.7 0-1.3 10 ^3/uL Eosinophils # (Auto) 0.1 0-0.8 10 ^3/uL Basophils # (Auto) 0 0-0.2 10 ^3/uL Nucleated Red Blood Cells 0.0 % Prothrombin Time 9.9 9.3-11.8 sec Prothrombin Time INR 0.93 0.9-1.15 Activated Partial Thromboplast Time 29.4 24.5-34.5 SEC Sodium Level 137 136-145 mmol/L Potassium Level 3.9 3.5-5.1 mmol/L Chloride Level 106 98-107 mmol/L Carbon Dioxide Level 21 20-31 mmol/L Anion Gap 10 5-15 Blood Urea Nitrogen 9 9-23 mg/dL Creatinine 0.74 0.550-1.02 mg/dL Glomerular Filtration Rate Calc 110 >90 mL/min BUN/Creatinine Ratio 12.2 10.0-20.0 Serum Glucose 106 74-106 mg/dL Uric Acid 6.5 3.1-7.8 mg/dL Calcium Level 9.5 8.7-10.4 mg/dL Total Bilirubin 0.3 0.2-1.0 mg/dL Aspartate Amino Transferase (AST) 17 13-40 U/L Alanine Aminotransferase (ALT) 15 7-40 U/L Alkaline Phosphatase 179 H 46-116 U/L Total Protein 6.3 5.7-8.2 g/dL Albumin 3.8 3.2-4.8 g/dL Treponema pallidum Antibody Non-reactive Negative Hepatitis C Antibody Negative Negative Assessment Assessment A: 34yo IUP@37.1wks Induction of Labor Gestational HTN GDM, A2 Category I EFM Intact Membranes GBS negative Plan Plan P: Discussed continuing IOL with IV pitocin, pt agrees. Blood glucose checks q4hrs then in active labor q2hrs. monitoring per order Pain mgmt PRN, RN prepping pt for epidural Frequent position changes in bed with peanut ball encouraged Limit SVE unless necessary Intrauterine resuscitation PRN Anticipate ADIN is co-managing care with Dr. Youngblood. Plan discussed with: Patient, Other (family) Visit Coding OBGYN Date of Service: Jan 06, 2025 Billing Provider: KARON HERNANDES CNM STRAW HAT MACHINE OPERATOR Common Visit Codes: [id number] INP/OBS CARE(HIGH) KARON HERNANDES CNM Jan 06, 2025 17:56
--- NOTE | 2025-01-06 18:25 | EPIDURAL ---
Anesthesia Procedural Note - Epidural Informed consent obtained?: Yes Medication Administered: Fentanyl 100 mcg Sterile prept drape: Yes Spinal level of insertion: L3-L4 Test dose of lidocaine & Epine: Negative Infusion started: Yes Start time: 17:44 End time: 04:49 Procedure description Procedure description: 34 year old female with AOG 38 weeks, admitted for induction of labor for GHTN and GDMA2, desires PCEA for Labor and delivery. Ms. Burdick delivered a single live baby girl with APGARs 6, 7, and 9 and 1, 5, and 10 minutes respectively, with 1 nuchal cord. Epidural catheter pulled with tip intact. No redness,, oozing, or redness around the epidural area.n She is back of baseline, able to ambulate and nieto with her . Total epidural time: 1744 - 4 Total face to face time: 1744 - 182. ROSENDA LEDEZMA MD Jan 06, 2025 18:25
[2025-01-06] MEDS: LACT. RINGERS/OXYTOCIN 20UNITS 1,000 ML IV SCH (19:03)
[2025-01-06] MEDS: fentaNYL CITRATE 100 MCG/2 ML VL IV ONE (19:05)
[2025-01-06] MEDS: ROPIVACAINE HCL 100 ML ONE (19:07)
[2025-01-06] MEDS: LABETALOL HCL 200 MG TAB PO SCH (19:32)
[2025-01-06] MEDS: ONDANSETRON HCL 4 MG/2 ML VIAL IV PRN (20:12)
[2025-01-06] MEDS: D5W/LACTATED RINGERS 1,000 ML IV SCH (20:13)
--- NOTE | 2025-01-06 23:32 | DVHPN2 ---
CNM Labor Progress Note Date and Time Seen Date Seen: Jan 06, 2025 Time Seen: 23:10 Subjective Subjective Comment Pt feels good with epidural, denies pain or pressure. Denies COSTA/vision changes/RUQ pain. IV's need to be replaced, so IV nurse will return with ultrasound guidance to place new IVs. Discussed inability to restart pitocin due to IV replacement, discussed AROM to continue IOL and pt consents to AROM. Objective Vital Signs VSS, see chart Monitoring Method Monitoring Method: External Heart Rate Heart Rate Baseline: 130 Heart Rate Variability: Moderate Presence of FHR Accelerations: Yes Presence of FHR Decelerations: No Are all 5 Components of the FH: Yes Contractions Contractions Frequency: Other (q3-6 min) Duration of Contraction: 90 Contractions Intensity: Moderate Contractions Resting Tone: Relaxed Membranes Membranes: Ruptured (AROM) Amniotic Fluid Color: Bloody (tinged) Vaginal Exam Vag Exam Deferred: No Vaginal Exam Dilation: 4 Vaginal Exam Effacement: 60 Vaginal Exam Station: -2 Vaginal Exam Presentation: VTX Vaginal Exam Show: Moderate Medications Medications - Pitocin: No Medication - Epidural: Yes Medication - Other s/p 1 dose of PO cytotec Lab Results Lab Results Vital Signs Date Time Temp Pulse Resp B/P (MAP) Pulse Ox O2 Delivery O2 Flow Rate FiO2 01/06/25 19:32 72 136/72 Current Medications Medications (Trade) Dose Ordered Sig/Stas Start Time Stop Time Status Last Admin Dose Admin Lactated Ringer's 1,000 ml @ 125 mls/hr Q8H 01/06/25 11:15 01/06/25 12:32 125 MLS/HR Edgar Reyes (Tucks) 1 pad PRN PRN 01/06/25 11:15 01/06/25 12:28 1 PAD Sodium Lauryl Sulfate (Phisoderm) 240 ml PRN PRN 01/06/25 11:15 01/06/25 12:28 240 ML Benzocaine (Dermoplast) 1 applic PRN PRN 01/06/25 11:15 01/06/25 12:28 1 APPLIC Lidocaine HCl (Xylocaine) 20 ml ONCE PRN 01/06/25 11:15 Oxytocin 500 ml @ 999 mls/hr Q31M ONCE 01/06/25 11:15 01/06/25 12:20 DC Oxytocin 500 ml @ 125 mls/hr Q4H ONCE 01/06/25 11:45 01/06/25 15:44 DC Labetalol HCl (Normodyne Tablet) 200 mg Q12HR 01/06/25 20:00 01/06/25 19:32 200 MG Misoprostol (Cytotec) 50 mcg Q4HPRN PRN 01/06/25 12:15 01/06/25 12:30 50 MCG Ondansetron HCl (Zofran) 4 mg Q6HPRN PRN 01/06/25 13:15 01/06/25 20:12 4 MG Oxytocin 1,000 ml @ 6 ml/hr Q24H 01/06/25 16:30 01/06/25 19:03 6 ML/HR Naloxone HCl (Narcan) 0.2 mg PRN ONCE 01/06/25 17:00 01/06/25 17:08 DC Ephedrine Sulfate (ePHEDrine SULFATE) 10 mg PRN ONCE 01/06/25 17:00 01/06/25 17:08 DC Fentanyl Citrate 100 mcg ONCE ONCE 01/06/25 17:00 01/06/25 17:08 DC 01/06/25 19:05 100 MCG Lidocaine HCl (Xylocaine-Pf 2% Injection) 10 ml ONCE ONCE 01/06/25 17:00 01/06/25 17:08 DC Lactated Ringer's 1,000 ml @ 1,000 mls/hr Q1H ONCE 01/06/25 17:00 01/06/25 17:59 DC 01/06/25 17:27 1,000 MLS/HR Dextrose/Lactated Ringer's 1,000 ml @ 125 mls/hr Q8H 01/06/25 20:00 01/06/25 20:13 125 MLS/HR Laboratory Tests Test 01/06/25 21:27 01/06/25 12:50 01/06/25 11:32 Range/Units POC Glucose 86 70-106 mg/dl Urine Color Light-yellow Yellow Urine Clarity Clear Clear Urine pH 5.5 5.0-9.0 Urine Specific [place] 1.017 1.001-1.035 Urine Protein Negative Negative Urine Ketones Negative Negative Urine Blood 2+ H Negative /uL Urine Nitrite Negative Negative Urine Bilirubin Negative Negative Urine Urobilinogen Normal Negative mg/dL Urine Leukocyte Esterase Negative Negative /uL Urine RBC 2 0 - 4 /hpf Urine Microscopic WBC 1 0-5 /HPF Urine Squamous Epithelial Cells Few <5 /hpf Urine Bacteria None seen None Seen /hpf Urine Mucus Few None Seen Urine Creatinine 130.58 H 30.0-125.0 mg/dL Urine Protein/Creatinine Ratio < 0.05 Urine Glucose Normal Normal mg/dL Urine Total Protein < 6.0 1-14 mg/dL Urine Opiates Screen Neg NEGATIVE Urine Fentanyl Screen Neg NEGATIVE Urine Barbiturates Screen Neg NEGATIVE Urine Phencyclidine Screen Neg NEGATIVE Urine Amphetamines Screen Neg NEGATIVE Urine Benzodiazepines Screen Neg NEGATIVE Urine Cocaine Screen Neg NEGATIVE Urine Cannabinoids Screen Neg NEGATIVE White Blood Count 10.2 # 4.4-10.8 10^3/uL Red Blood Count 4.28 4.0-5.20 10^6/uL Hemoglobin 10.7 L 12.2-16.2 g/dL Hematocrit 33.0 L 36.0-46.0 % Mean Corpuscular Volume 77.0 L 80.0-100.0 fL Mean Corpuscular Hemoglobin 25.0 L 28.0-32.0 pg Mean Corpuscular Hemoglobin Concent 32.5 32.0-36.0 g/dL Red Cell Distribution Width 15.5 H 11.8-14.3 % Platelet Count 277 140-450 10^3/uL Mean Platelet Volume 9.1 6.9-10.8 fL Neutrophils (%) (Auto) 71.9 37.0-80.0 % Lymphocytes (%) (Auto) 20.3 10.0-50.0 % Monocytes (%) (Auto) 6.7 0.0-12.0 % Eosinophils (%) (Auto) 0.9 0.0-7.0 % Basophils (%) (Auto) 0.2 0.0-2.0 % Neutrophils # (Auto) 7.3 1.6-8.6 10 ^3/uL Lymphocytes # (Auto) 2.1 0.4-5.4 10 ^3/uL Monocytes # (Auto) 0.7 0-1.3 10 ^3/uL Eosinophils # (Auto) 0.1 0-0.8 10 ^3/uL Basophils # (Auto) 0 0-0.2 10 ^3/uL Nucleated Red Blood Cells 0.0 % Prothrombin Time 9.9 9.3-11.8 sec Prothrombin Time INR 0.93 0.9-1.15 Activated Partial Thromboplast Time 29.4 24.5-34.5 SEC Sodium Level 137 136-145 mmol/L Potassium Level 3.9 3.5-5.1 mmol/L Chloride Level 106 98-107 mmol/L Carbon Dioxide Level 21 20-31 mmol/L Anion Gap 10 5-15 Blood Urea Nitrogen 9 9-23 mg/dL Creatinine 0.74 0.550-1.02 mg/dL Glomerular Filtration Rate Calc 110 >90 mL/min BUN/Creatinine Ratio 12.2 10.0-20.0 Serum Glucose 106 74-106 mg/dL Uric Acid 6.5 3.1-7.8 mg/dL Calcium Level 9.5 8.7-10.4 mg/dL Total Bilirubin 0.3 0.2-1.0 mg/dL Aspartate Amino Transferase (AST) 17 13-40 U/L Alanine Aminotransferase (ALT) 15 7-40 U/L Alkaline Phosphatase 179 H 46-116 U/L Total Protein 6.3 5.7-8.2 g/dL Albumin 3.8 3.2-4.8 g/dL Treponema pallidum Antibody Non-reactive Negative Hepatitis C Antibody Negative Negative Assessment Assessment A: 34yo IUP@37.6wks Induction of Labor Gestational HTN GDM, A2 Category I EFM AROM, blood tinged GBS negative Plan Plan P: Restart IV pitocin when IVs are replaced and Category I EFM Blood glucose checks q4hrs then in active labor q2hrs. monitoring per order Pain mgmt - epidural in place Frequent position changes in bed with peanut ball encouraged Limit SVE unless necessary Intrauterine resuscitation PRN Anticipate ADIN is co-managing care with Dr. Youngblood. Plan discussed with: Patient, Other (family) Visit Coding OBGYN Date of Service: Jan 06, 2025 Billing Provider: KARON HERNANDES CNM PERSONNEL ASSOCIATE Common Visit Codes: [id number] INP/OBS CARE(HIGH) KARON HERNANDES CNM Jan 06, 2025 23:32
[2025-01-07] MEDS: ROPIVACAINE HCL 100 ML ONE (00:24)
[2025-01-07] MEDS: METOCLOPRAMIDE HCL 5MG/ml INJ 2ml VIAL IV PRN (00:34)
--- NOTE | 2025-01-07 01:52 | DVHHP ---
ADMIT DATE: 01/06/2025 The patient is admitted for induction of labor secondary to chronic hypertension. The patient was seen in the office, noted to have blood pressure of 160/100, sent to Labor and Delivery. The patient was also under Dr. Miles's care. Baby weighed approximately 8 pounds 1 ounce last week. The patient requested getting induced. Risks, complications of induction discussed with the patient due to the size of the baby with possibility of shoulder dystocia, brachial plexus damage discussed with the patient. Options reviewed. Option of primary was given to the patient. The patient is very adamant about having vaginal delivery. The patient is admitted for induction and wishes to proceed with trial of labor. She fully understands risks, complications of shoulder dystocia and brachial plexus palsy. DO TARUN Adair/BREANNA TID: [id number] RECEIPT: [id number]
--- NOTE | 2025-01-07 04:34 | LDN2 ---
Labor and Delivery Note Date 01/07/25 Age 34 3 Para 3 AB 0 EDC 01/21/25 EGA 38 Diagnosis IOL for GHTN/ GDMA2 Vaginal Delivery: VTX Vacuum Assisted: No Placenta: Spontaneous Sex: Female Weight 3665g Apgars 6,7,9 Nuchal Cord Transected: No Amniotic Fluid: Clear Anesthesia Epidural Episiotomy: No Extension: No EBL QBL 300 ml Labs Blood Bank 01/06/25 11:32: Blood Type B POSITIVE Complications Nuchal cord x 1, tight Staff Analyst MD Xander Comments/Significant Med [place] At 0409 this 34yo now delivered a viable female infant by w/ APGARS //9. RT at bedside for delivery. SAURABH with tight Nuchal x1 with cord reduced before down through body. Infant placed skin to skin on pts chest. Cord clamped and cut after 2 mins. Cord blood sent. Intact 3-vessel cord placenta delivered spontaneously, Anastacio. Pitocin bolus started. Fundus firm at U, mod lochia, manual sweep done and uterus cleared of all clots per pt consent.Rectal cytotec 800 mcg and TXA 1g IVPB given, ancef 2g ordered for prophylaxis. Placenta sent to pathology. Patient had epidural. Cervix/vagina inspected (intact), no lacerations on perineum/labia noted. Fundus at U, firm, midline, and light lochia. QBL 300ml. VSS. Count correct x2. Patient to care and baby to couplet care, both stable. Delivery done by ANIRUDH Cui and supervised by Jena Huertas CNM. Visit Coding OBGYN Date of Service: Jan 07, 2025 Billing Provider: AKRON HUERTAS CNM LEGAL BILLER Common Visit Codes: PROCEDURE ONLY LEGAL BILLER Procedure Codes: [id number] DEL INCLUDING KARON HUERTAS CNM Jan 07, 2025 04:34
[2025-01-07] MEDS: ceFAZolin 2 GM/D5W50ml 50 ML IV ONE (05:22)
[2025-01-07] MEDS: LACT. RINGERS/OXYTOCIN 20UNITS 500 ML IV ONE ×2 (05:32→05:33)
[2025-01-07] MEDS ORDERED: TRANEXAMIC ACID 1,000 mg/10ml INJ VIAL IV ONE (07:24)
[2025-01-07 11:00] VITALS: BP 141/66; PULSE 85; RESP 16; TEMP 98.7; O2SAT 97
[2025-01-07] MEDS: PRENATAL VITAMIN TAB PO SCH (11:35)
[2025-01-07] MEDS: IBUPROFEN 600 MG TAB PO PRN (12:50)
[2025-01-07 15:00] VITALS: BP 135/62; PULSE 91; RESP 18; TEMP 98.7; O2SAT 97
[2025-01-07 19:00] VITALS: BP 129/72; PULSE 85; RESP 17; TEMP 97.8; O2SAT 97
[2025-01-07] MEDS: ACETAMINOPHEN 325 MG TAB PO PRN (19:25)
[2025-01-07] MEDS ORDERED: PREN-96 PO (22:41)
[2025-01-07] MEDS ORDERED: IBU600T PO (22:41)
[2025-01-07] MEDS ORDERED: DOCU-265 PO (22:41)
[2025-01-07] MEDS ORDERED: LABE200T33 PO (22:41)
[2025-01-07 22:45] VITALS: BP 130/79; PULSE 99; RESP 16; TEMP 97.8; O2SAT 97
--- NOTE | 2025-01-08 00:40 | DVHPN2 ---
Progress Note Date Seen: Jan 08, 2025 Subjective S: bleeding is less, eating food without issues, denies lightheaded/dizziness, pain well controlled with oral medications, no concerns with urinating, passing flatus, no BM yet, ambulating well, vital signs Vital Sign Date Time Temp Pulse Resp B/P (MAP) Pulse Ox O2 Delivery O2 Flow Rate FiO2 01/07/25 22:45 97.8 99 16 130/79 (96) 97 97.8 01/07/25 18:30 Room Air Total Intake and Output 01/07/25 01/07/25 01/08/25 15:00 23:00 07:00 Intake Total 240 ml Output Total 1100 ml 400 ml Balance -1100 ml -160 ml medications Current Medications Medications Dose Ordered Sig/Stas Route Start Time Stop Time Status Last Admin Dose Admin Lactated Ringer's 1,000 ml @ 125 mls/hr Q8H IV 01/06/25 11:15 01/06/25 12:32 125 MLS/HR Edgar Reyes 1 pad PRN PRN TOP 01/06/25 11:15 01/06/25 12:28 1 PAD Sodium Lauryl Sulfate 240 ml PRN PRN TOP 01/06/25 11:15 01/06/25 12:28 240 ML Benzocaine 1 applic PRN PRN TOP 01/06/25 11:15 01/06/25 12:28 1 APPLIC Labetalol HCl 200 mg Q12HR PO 01/06/25 20:00 01/07/25 22:27 200 MG Ondansetron HCl 4 mg Q6HPRN PRN IV 01/06/25 13:15 01/06/25 20:12 4 MG Metoclopramide HCl 10 mg Q8HPRN PRN IV 01/07/25 00:00 01/07/25 00:34 10 MG Ibuprofen 600 mg Q6HP PRN PO 01/07/25 04:45 01/07/25 22:31 600 MG Acetaminophen 650 mg Q6HPRN PRN PO 01/07/25 04:45 01/07/25 19:25 650 MG Prenat Multivit/ [place]/Iron/Folic Ac 1 DAILY PO 01/07/25 10:00 01/07/25 11:35 1 Docusate Sodium 200 mg DAILYP PRN PO 01/07/25 07:00 laboratory and microbiology Laboratory Tests 01/06/25 11:32 Test 01/06/25 11:32 Range/Units Serum Glucose 106 74-106 mg/dL Objective O: VSS Chest: heart sounds normal and lung sounds clear bilaterally Abd: soft, non-tender, fundus at U/firm/midline, active bowel sounds, no rebound or guarding Perineum: intact, no erythema/edema noted Ext: Non-tender, No edema, 2+ BLE DTRs Lochia: minimal See lab results Assessment/Plan A: 34yo now PPD#1 s/p Rh+ Rubella Immune P: D/C home today Rx sent to pharmacy. Dr. Youngblood consulted, rx sent for labetalol 200mg PO BID to be continued PP. precautions and preeclampsia warning signs reviewed F/U with [facility] office in 1 week for BP check Plan discussed with: Patient, Other (family) Visit Coding OBGYN Date of Service: Jan 08, 2025 Billing Provider: KARON HERNANDES CNM RIGHT OF WAY APPRAISER Common Visit Codes: [id number] INP/OBS CARE(HIGH) KARON EHRNANDES CNM Jan 08, 2025 00:40
--- NOTE | 2025-01-08 00:42 | DVHDS2 ---
Obstetrics Discharge Summary Obstetrics Discharge Summary Date of Admission: Jan 06, 2025 Date of Discharge: Jan 08, 2025 Reason For Admission: Induction of Labor Procedures: NST, Mgmt of Obstetrics Compli (GHTN/GDM, A2) Intrapartum Procedures: Spontaneous vaginal deliv Procedures: Antibiotics, Hct/date: (01/08/25), Hgb/date: (01/08/25) Operative Complicat: None Discharge Diagnosis: Term -Delivered (Pt denies COSTA/vision changes/RUQ pain. VSS.) Discharge Information: Activity (as tolerated, no heavy lifting and nothing in the vagina for 6 weeks), Diet (Routine), Medications (Rx sent), Instructions (Routine), Discharge to (Home), Accompanied by (family), Discarge date (01/08/25) Visit Coding OBGYN Date of Service: Jan 08, 2025 Billing Provider: KARON HERNANDES CNM COIN MACHINE MECHANIC Common Visit Codes: [id number] DISCH DAY <30MIN KARON HERNANDES CNM Jan 08, 2025 00:42
[2025-01-08] MEDS: DOCUSATE SOD 100 MG CAP PO PRN (00:43)
[2025-01-08 03:30] VITALS: BP 134/79; PULSE 71; RESP 16; TEMP 97.9; O2SAT 98
[2025-01-08 07:00] VITALS: BP 128/75; PULSE 61; RESP 18; TEMP 97.9; O2SAT 97
[2025-01-08 07:30] LABS: Hemoglobin 8.8 g/dL (12.2-16.2)
[2025-01-08 07:34] LABS: Hematocrit 27.2 % (36.0-46.0); Mean Corpuscular Hemoglobin 25.2 pg (28.0-32.0); Mean Corpuscular Volume 77.7 fL (80.0-100.0); Nucleated Red Blood Cells % 0.0 %
[2025-01-08] MEDS ORDERED: FER325T PO (07:52)
== END 2025-01-08 11:45 | disposition home or self-care (01) | DRG 560 ==
LOC: UNDOADMIN 11:00 → LDRP 11:00
PROVIDERS: ADMIT Obstetrics & Gynecology; ATTEND Obstetrics & Gynecology
PROC: 3E0R3BZ Introduction of Anesthetic Agent into Spinal Canal, Percutaneous Approach (ICD-10-PCS; 2025-01-06)
PROC: 00HU33Z Insertion of Infusion Device into Spinal Canal, Percutaneous Approach (ICD-10-PCS; 2025-01-06)
PROC: 10E0XZZ Delivery of Products of Conception, External Approach (ICD-10-PCS; principal; 2025-01-07)
PROC: 3E033VJ Introduction of Other Hormone into Peripheral Vein, Percutaneous Approach (ICD-10-PCS; 2025-01-07)
DX: O13.4 Gestational [pregnancy-induced] hypertension without significant proteinuria, complicating childbirth (principal); Z37.0 Single live birth; O24.429 Gestational diabetes mellitus in childbirth, unspecified control; Z3A.37 37 weeks gestation of pregnancy; O69.1XX0 Labor and delivery complicated by cord around neck, with compression, not applicable or unspecified
CPT/HCPCS: 36415; 59025; 59409; 62282; 80053; 80307; 81001; 82570; 82948; 82962; 84156; 84550; 85025; 85610; 85730; 86780; 86803; 86850; 86900; 86901; 94760; 96360; 96361; 96365; 96366; A4344; G0378; J2405; J2590

== ENCOUNTER → 2025-04-01 | Outpatient (CLI) | payer MEDICAID ==
[~2025-04-01] MED LIST changes: -ASPI-543 PO; +DOCU-265 PO; +FER325T PO; +IBU600T PO; -METF-370 PO
[2025-04-01 11:27] LABS: Hemoglobin 11.9 g/dL (12.2-16.2)
[2025-04-01 11:31] LABS: Hematocrit 36.6 % (36.0-46.0); Mean Corpuscular Hemoglobin 25.9 pg (28.0-32.0); Mean Corpuscular Volume 79.3 fL (80.0-100.0); Nucleated Red Blood Cells % 0.0 %
[2025-04-01 12:20] LABS: Alanine Aminotransferase 19 U/L (7-40); Alkaline Phosphatase 95 U/L (46-116); Anion Gap 9 (5-15); Calcium 9.2 mg/dL (8.7-10.4); Carbon Dioxide 26 mmol/L (20-31); Potassium 4.3 mmol/L (3.5-5.1); Sodium 142 mmol/L (136-145)
[2025-04-01 12:22] LABS: Glucose 89 mg/dL (74-106)
[2025-04-01 12:23] LABS: Blood Urea Nitrogen 10 mg/dL (9-23); Total Protein 7.7 g/dL (5.7-8.2); Triglycerides 86 mg/dL (< 150)
[2025-04-01 12:24] LABS: Albumin 4.5 g/dL (3.2-4.8)
[2025-04-01 12:25] LABS: Cholesterol 155 mg/dL (< 200); HDL Cholesterol 51 mg/dL (40-59)
[2025-04-01 12:26] LABS: BUN/Creatinine Ratio 12.8 (10.0-20.0)
[2025-04-01 12:38] LABS: Bilirubin, Total 0.3 mg/dL (0.2-1.0); Chloride 107 mmol/L (98-107)
== END | disposition home or self-care (01) ==
LOC: LAB 10:42
PROVIDERS: ATTEND Nurse Practitioner Family
DX: I10 Essential (primary) hypertension (principal); E11.9 Type 2 diabetes mellitus without complications; E66.9 Obesity, unspecified; Z00.01 Encounter for general adult medical examination with abnormal findings
CPT/HCPCS: 36415; 80053; 80061; 82043; 82306; 83036; 84443; 85025

== ENCOUNTER 2025-04-13 17:07 | Emergency (ER) | payer MEDICAID ==
[~2025-04-13] VITALS: Ht 167.6 cm; Wt 86.9 kg
[2025-04-13 17:09] VITALS: BP 163/95; PULSE 139; RESP 19; O2SAT 100
[2025-04-13] MEDS ORDERED: AMOX875T3 PO (17:29)
[2025-04-13] MEDS ORDERED: PRED15SO33 PO (17:29)
--- NOTE | 2025-04-13 17:30 | ED.PDOC ---
Eye-HPI HPI Comments Patient complaining of sore throat fever and body aches which started today. No nausea no vomiting. Intermittent diarrhea. Nothing makes it better, eating swallowing make the pain worse. Patient feels short of breath when swallowing. Patient also started having coughing and congestion today. Chief Complaint: Sore Throat Time Seen by MD: 17:14 Primary Care Provider: LAUREN Reviewed Notes: Nurses Notes Allergies: Coded Allergies: NO KNOWN ALLERGIES (Unverified , 10/05/24) Home Meds Active Scripts Ferrous Sulfate (FERROUS SULFATE) 325 Mg Tb, 1 TAB PO DAILY, #30 TAB 3 Refills Prov:KARON HERNANDES [facility] 01/08/25 Docusate Sodium (Docusate Sodium) 100 Mg Cap, 200 MG PO DAILYP PRN for 30 Days, #60 CAP 2 Refills Prov:KARON HERNANDES [facility] 01/07/25 Ibuprofen Micronized (MOTRIN TABLET) 600 Mg Tb, 600 MG PO Q6HP PRN for 20 Days, #80 TAB Prov:GRETAFRANCISCAILIANALONI [facility] 01/07/25 Labetalol Hcl (Labetalol Hcl) 200 Mg Tab, 1 TAB PO BID, #60 TAB 2 Refills take twice a day per Dr. 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 Family History Family History: Reviewed,noncontributory to illness Social History Smoker: Non-Smoker Alcohol: Denies ETOH Use Drugs: Denies Drug Use Lives In: Home Constitutional: reports: fever; denies: chills, diaphoresis, fatigue, malaise, sweats, weakness, others EENTM: reports: throat pain, throat swelling; denies: blurred vision, double vision, ear bleeding, ear discharge, ear drainage, ear pain, ear ringing, eye pain, eye redness, hearing loss, mouth pain, mouth swelling, nasal discharge, nose bleeding, nose congestion, nose pain, photophobia, tearing, voice changes, others Respiratory: denies: cough, hemoptysis, orthopnea, SOB at rest, shortness of breath, SOB with excertion, stridor, wheezing, others Cardiovascular: denies: chest pain, dizzy spells, diaphoresis, Dyspnea on exertion, edema, irregular heart beat, left arm pain, lightheadedness, palpitations, PND, syncope, others Physical Exam General Appearance: No Apparent Distress, Normal HEENT: Normal ENT Inspection, Pharyngeal Erythema, TMs Normal, Tonsillar Exudate Neck: Full Range of Motion, Non-Tender, Normal, Normal Inspection Respiratory: Chest Non-Tender, Lungs Clear, No Accessory Muscle Use, No Respiratory Distress, Normal Breath Sounds Cardiovascular: No Edema, No JVD, No Murmur, No Gallop, Normal Peripheral Pul ses, Regular Rate/Rhythm Breast Exam: Deferred Gastrointestinal: No Organomegaly, Non Tender, No Pulsatile Mass, Normal Bowel Sounds, Soft Genitalia: Deferred Pelvic: Deferred Rectal: Deferred Extremities: No calf tenderness, Normal capillary refill, Normal inspection, Normal range of motion, Non-tender, No pedal edema Musculoskeletal : Apperance: Normal Neurologic: Alert, senior cost analyst II-XII nml as Tested, No Motor Deficits, Normal Affect, Normal Mood, No Sensory Deficits Cerebellar Function: Normal Reflexes: Normal Skin: Dry, Normal Color, Warm Lymphatic: No Adenopathy Was a procedure done? Was a procedure done?: No EENT DIFF Eye: N/A Sore Throat: Epiglottitis, Hand Foot Mouth Disease, Luis Fernando's Angina, Peritonsillar Abscess X-Ray, Labs, Meds, VS Vital Signs Date Time Temp Pulse Resp B/P (MAP) Pulse Ox O2 Delivery O2 Flow Rate FiO2 04/13/25 17:09 102.9 139 19 163/95 100 102.9 X-Ray, Labs, Meds, VS Comment Imaging was reviewed by this provider, there is no obvious pathological or acute disease process. Pending radiology review Labs were reviewed by this provider, no abnormalities Vital signs reviewed by this provider, clinically stable Time of 1ST Reevaluation: 17:30 Reevaluation 1ST: Improved Patient Education/Counseling: Diagnosis, Treatment, Need For Follow Up (Follow up in the emergency department in next 24-48 hours if symptoms worsen.) Family Education/Counseling: Diagnosis SEPSIS Sepsis Screen Date sepsis recognized/suspect: Apr 13, 2025 Time Sepsis recognized/suspect: 1708 Recent Procedure: No On Antibiotic Therapy: No Respiratory Rate >20: No Heart Rate >90: Yes Temp<36 C (96.8 F) or >38.3 C: No SBP <90 or MAP <65 mmHG: No New Acute Mental Status Change: No Is the patient on CPAP, BIPAP,: No Vital Signs Date Time Temp Pulse Resp B/P (MAP) Pulse Ox O2 Delivery O2 Flow Rate FiO2 04/13/25 17:09 102.9 139 19 163/95 100 102.9 Departure 1 Departure Time of Disposition: 17:28 Impression: Primary Impression: Tonsillitis Disposition: HOME / SELF CARE / HOMELESS Condition: Fair e-Prescriptions Prednisolone (Prednisolone) 15 Mg/5 Ml Gregoria 15 MG PO BID for 4 Days, #40 ML Prov: BARBRA GOMEZ 04/13/25 Amoxicillin Trihydrate (Amoxicillin) 875 Mg Tab 1 TAB PO BID, #20 TAB Prov: BARBRA GOMEZ 04/13/25 Discharged With: Self Critical Care Note Critical Care Time?: No Stability Stability form required: No Heart Score Heart Score: Heart Score Response (Comments) Value History N/A 0 EKG N/A 0 Age N/A 0 Risk Factors N/A 0 Troponin N/A 0 Total 0 BARBRA GOMEZ Apr 13, 2025 17:30
[2025-04-13] MEDS: ACETAMINOPHEN 500 MG TAB or CAP PO ONE (17:40)
[2025-04-13 17:45] VITALS: TEMP 100.2
== END 2025-04-13 17:44 | disposition home or self-care (01) ==
LOC: ER 17:09
DX: J03.90 Acute tonsillitis, unspecified (principal); Z79.899 Other long term (current) drug therapy